=== PATIENT | male | born 1940 | race Caucasian/White ===

== ENCOUNTER 2017-02-11 11:23 | Inpatient (IN) | payer MEDICARE ==
[~2017-02-11] VITALS: Ht 327.7 cm; Wt 52.4 kg
[2017-02-11 00:30] VITALS: BP 131/79
[~2017-02-11 11:23] MED LIST: ASA81 MG PO; FAMOTIDINE20 MG PO; HYDROCODONE; LASIX40 MG PO; LEVOTHYROXINE75 MCG PO; LEXAPRO10 MG PO; LISINOPRIL10 MG PO; TRIAMTERENE-HCTZ1 EA PO; TYLENOL WITH C1 EACH PO; ULTRAM 50MG50 MG PO; VERAPAMIL ER120 MG PO; Z TEKTURNA HCT; Z.0.CLONIDINE HCL0.2; Z.0.DIAZEPAM10 MG PO; Z.0.GLIPIZIDE5 MG PO; Z.0.METOPROLOL SUCC5; Z.1.VERAPAMIL ER240; [UNRECOGNIZED DRUG - OTHER]
[2017-02-11] MEDS ORDERED: SODIUM CHLORIDE FLUSH 10 ML SYR INJ PRN ×2 (13:00→19:30)
--- NOTE | 2017-02-11 13:48 | Diagnostic Imaging Report ---
PROCEDURE: CT ABDOMEN AND PELVIS WITHOUT CONTRAST TECHNIQUE: The abdomen and pelvis were scanned utilizing a multidetector helical scanner from the diaphragm to the lesser trochanter without contrast per stone protocol. Coronal and sagittal multiplanar reformations were obtained. COMPARISON: CT abdomen and pelvis 06/05/2014. INDICATIONS: hematuria FINDINGS: ABSENCE OF INTRAVENOUS CONTRAST DECREASES SENSITIVITY FOR DETECTION OF FOCAL LESIONS AND VASCULAR PATHOLOGY. LOWER THORAX: Peribronchial cuffing. Mild dependent atelectasis. Calcified granuloma in the right lower lobe. Subtle tree in bud nodular opacities in the left lower lobe. Questionable tree in bud nodules in the right lower lo lobe. Coronary artery calcifications. HEPATOBILIARY: No focal hepatic lesions. No biliary ductal dilatation. SPLEEN: No splenomegaly. PANCREAS: No focal masses or ductal dilatation. ADRENALS: No adrenal nodules. KIDNEYS/URETERS: No hydronephrosis, or solid mass lesions. 3.5 cm simple cyst in the superior pole left kidney (series 2 image 13). Previously 3.1 cm. Right double-J ureteral stent in place. Possible 0.5 cm stone in the right renal pelvis (series 301 image 57). PELVIC ORGANS/BLADDER: Unremarkable. PERITONEUM / RETROPERITONEUM: No free air or fluid. LYMPH NODES: No lymphadenopathy. VESSELS: Severe atherosclerotic calcifications in the aorta and major arterial branches. This extends into both renal arteries. GI TRACT: No distention or wall thickening. BONES AND SOFT TISSUES: Moderate degenerative changes in the lumbar spine with moderate multilevel disc space narrowing. Large posterior disc osteophytes at L2-L3, L3-4, and L4-L5.. IMPRESSION: 1. Right double-J ureteral stent in place. No hydronephrosis. 2. 0.5 cm calcification in the right renal pelvis/sinus. This may represent a stone. However, this was present on 06/05/2014 and may also represent a vascular calcification. Patient has significant atherosclerotic calcifications in the aorta and extending into the renal arteries. 3. Bilateral lobe pneumonia. Dictated by: Eric Parra M.D. on 02/11/2017 at 13:56 Electronically approved by: Eric Parra M.D. on 02/11/2017 at 13:56
[2017-02-11 14:47] LABS: KETONES,URINE TRACE (NEGATIVE); LEUKOCYTE ESTERASE ,URINE 2+ (NEGATIVE); PROTEIN,URINE DIPSTICK 3+ (NEGATIVE); URINE UROBILINOGEN 1 mg/dL (0.2 - 1)
[2017-02-11 14:50] LABS: BASOPHILS # (AUTO) 0.1 (0.0-0.1); BASOPHILS % 0.7 % (0.0-1.0); EOSINOPHILS # (AUTO) 0.1 (0.0-0.4); EOSINOPHILS % 0.8 % (0.0-6.0); HEMATOCRIT 41.6 % (38.2-49.6); HEMOGLOBIN 12.9 g/dL (14.0-18.0); LYMPHOCYTES # (AUTO) 1.4 (1.0-3.2); LYMPHOCYTES % 19.2 % (18.0-39.1); MEAN CORPUSCULAR HEMOGLOBIN 26.7 pg (28-32); MEAN CORPUSCULAR VOLUME 86.1 fL (81-99); MONOCYTES # (AUTO) 0.6 (0.2-0.8); MONOCYTES % 8.1 % (4.4-11.3); NEUTROPHILS # (AUTO) 5.3 (2.1-6.9); NEUTROPHILS % 71.1 % (38.7-80.0); PLATELET COUNT 336 x10e3/uL (140-360); RED BLOOD COUNT 4.83 x10e6/uL (4.3-5.7); RED CELL DISTRIBUTION WIDTH 13.7 % (11.7-14.4)
[2017-02-11 15:10] LABS: BILIRUBIN,URINE 1+ (NEGATIVE); CLARITY,URINE CLOUDY (CLEAR); COLOR,URINE AMBER (YELLOW); NITRITE,URINE POSITIVE (NEGATIVE)
[2017-02-11 15:15] LABS: RBC,URINE >50 /HPF (0-5); WBC,URINE (MAN) >50 /HPF (0-5)
[2017-02-11 15:20] LABS: ALBUMIN 3.8 g/dL (3.5-5.0); ALKALINE PHOSPHATASE 83 IU/L (40-150); BLOOD UREA NITROGEN 24 mg/dL (7-26); BUN/CREATININE RATIO 11 (6-25); CALCIUM 9.9 mg/dL (8.4-10.2); CARBON DIOXIDE 26 mmol/L (22-29); CHLORIDE 106 mmol/L (98-107); CREATININE, SERUM 2.14 mg/dL (0.72-1.25); EST GLOMERULAR FILTRATION RATE 30 ML/MIN (60-); GLUCOSE 102 mg/dL (74-118); SODIUM 143 mmol/L (136-145)
[2017-02-11 15:23] LABS: ALANINE AMINOTRANSFERASE < 6 IU/L (0-55)
[2017-02-11] MEDS ORDERED: SODIUM CHLORIDE 0.9% 1000ML 1,000 ML IV SCH (17:45)
[2017-02-11] MEDS ORDERED: LEVOFLOXACIN 750MG/D5W 150ML 150 ML IV STA (17:45)
[2017-02-11 18:55] LABS: CREATINE KINASE MB 0.7 ng/mL (0.00-5.00); TROPONIN I 0.019 ng/mL (0-0.300)
[2017-02-11] MEDS ORDERED: OXYBUTYNIN CHLOR5 MG PO (19:06)
[2017-02-11] MEDS ORDERED: LEVOFLOXACIN 750MG/DEXTROSE PREMIX BAG 150ML IV SCH (19:30)
[2017-02-11] MEDS: ALBUTEROL SULF 0.083% NEB SOLN 3 ML NEB NEB SCH ×2 (19:30→23:00)
[2017-02-11] MEDS: SODIUM CHLORIDE 0.9% 1000ML 1,000 ML IV SCH (21:41)
[2017-02-11 23:00] LABS: CREATINE KINASE MB 0.8 ng/mL (0.00-5.00); TROPONIN I 0.017 ng/mL (0-0.300)
[2017-02-12] VITALS (7 sets, daily range): BP systolic 109–173; BP diastolic 55–79
[2017-02-12] MEDS: ALBUTEROL SULF 0.083% NEB SOLN 3 ML NEB NEB SCH ×5 (03:00→20:30)
[2017-02-12] MEDS: SODIUM CHLORIDE 0.9% 1000ML 1,000 ML IV SCH ×4 (03:23→23:49)
[2017-02-12 06:22] LABS: BASOPHILS # (AUTO) 0.1 (0.0-0.1); BASOPHILS % 1.3 % (0.0-1.0); EOSINOPHILS # (AUTO) 0.2 (0.0-0.4); EOSINOPHILS % 3.3 % (0.0-6.0); HEMATOCRIT 33.8 % (38.2-49.6); HEMOGLOBIN 10.6 g/dL (14.0-18.0); LYMPHOCYTES # (AUTO) 1.3 (1.0-3.2); LYMPHOCYTES % 22.7 % (18.0-39.1); MEAN CORPUSCULAR HEMOGLOBIN 26.7 pg (28-32); MEAN CORPUSCULAR HGB CONC 31.4 g/dL (31-35); MEAN CORPUSCULAR VOLUME 85.1 fL (81-99); MONOCYTES # (AUTO) 0.5 (0.2-0.8); MONOCYTES % 9.8 % (4.4-11.3); NEUTROPHILS # (AUTO) 3.5 (2.1-6.9); NEUTROPHILS % 62.7 % (38.7-80.0); PLATELET COUNT 238 x10e3/uL (140-360); RED BLOOD COUNT 3.97 x10e6/uL (4.3-5.7); RED CELL DISTRIBUTION WIDTH 13.5 % (11.7-14.4)
[2017-02-12 06:50] LABS: CREATINE KINASE MB 0.8 ng/mL (0.00-5.00); TROPONIN I 0.015 ng/mL (0-0.300)
--- NOTE | 2017-02-12 08:09 | History and Physical ---
PRIMARY CARE PHYSICIAN: Dr. Ramirez CHIEF COMPLAINT: Bloody urine. HISTORY OF PRESENT ILLNESS: This is a 76-year-old man with a history of bladder polyps removed about [address] Torres, now developing hematuria for the past 3 weeks prompting his visit to the hospital. Here, he was found to have bloody urine. He was admitted for further evaluation and management. Denies any use of aspirin, Plavix or blood thinners. PAST MEDICAL HISTORY: Bladder polyps, status post removal [address] Torres, cigarette abuse and continued use of 1 pack a day, laryngeal cancer diagnosed in 2002, status post radiation therapy, status post tracheostomy placement, diabetes mellitus, anxiety/depression, hypothyroidism, hypertension, failure to thrive, severe dehydration, severe malnutrition, chronic kidney disease, stage 3/diabetic nephropathy, urethral disease, status post right double J-ureteral stent placement. PAST SURGICAL HISTORY: Tracheostomy placement, right double J-urethral stent placement. ALLERGIES: PER ELECTRONIC MEDICAL RECORD. FAMILY HISTORY/SOCIAL HISTORY: Patient is single. He has 2 children. Denies any alcohol or illicits. Continues to smoke 1 pack of cigarettes per day. MEDICATIONS: Per electronic medical record. REVIEW OF SYSTEMS: Denies any dizziness or chest pain. PHYSICAL EXAMINATION VITAL SIGNS: Reviewed. Heart rate as low as 41. GENERAL: A tired-appearing man resting in bed. HEENT: Anicteric. Pupils respond to light. No oral lesions. He has a tracheostomy in place and on room air. CARDIOVASCULAR: Normal S1 and S2. LUNGS: Moderate breath sounds. No wheezing. ABDOMEN: Soft, nontender and nondistended. : No Spence is in place. EXTREMITIES: No edema or calf tenderness. NEUROLOGICAL: Alert and oriented times 3. Moving all extremities. SKIN: Dry. PSYCHIATRIC: Normal affect. LABS: Reviewed. MEDICATIONS: Reviewed. ASSESSMENT AND PLAN: This is a 76-year-old man with: 1. Hematuria: Spence placement and irrigation. Urology consultation. Hold aspirin. 2. Bradyarrhythmia: There is no AV blocking agents. Will monitor. Utilizing hydralazine for reflex tachycardia. 3. Diabetes mellitus: Will obtain hemoglobin A1c and lipid panel. 4. Chronic kidney disease, stage 3/diabetic nephropathy: Will monitor renal function. Appears to be at baseline. 5. Normocytic anemia, mild: Will monitor. 6. Urinary tract infection: Will treat with antibiotics in the form of Levaquin and follow up cultures. 7. Double J-urethral stent in place: No hydronephrosis noted. Will defer to urology. 8. Lung infiltrates bilaterally: He is on Levaquin now. If this is pneumonia, he is receiving appropriate treatment. 9. Use sequential compression devices for deep venous thrombosis prophylaxis and will use Pepcid. 10. Disposition: Bladder irrigation, antibiotics, and urology consultation. Job#: [id number] THOMAS
[2017-02-12] MEDS: FAMOTIDINE 20 MG TAB PO SCH ×2 (08:21→16:48)
[2017-02-12] MEDS: LISINOPRIL 10 MG TAB PO SCH ×2 (08:21→16:48)
[2017-02-12] MEDS: ESCITALOPRAM OXALATE 10 MG TAB PO SCH (08:21)
[2017-02-12] MEDS: OXYBUTYNIN CHLORIDE 5 MG TAB PO SCH ×2 (08:21→16:48)
[2017-02-12 08:31] LABS: CHOL/HDL RATIO 4.6 (3.9-4.7)
[2017-02-12] MEDS ORDERED: LEVOTHYROXINE SODIUM 75 MCG TAB PO SCH (09:00)
[2017-02-12] MEDS: DIAZEPAM 5 MG TAB PO PRN ×2 (09:16→19:54)
[2017-02-12] MEDS: TRAMADOL HCL 50 MG TAB PO SCH ×4 (09:17→21:00)
[2017-02-12] MEDS: HYDRALAZINE HCL 10 MG TAB PO SCH ×2 (14:00→21:00)
--- NOTE | 2017-02-12 15:27 | Consultation ---
DATE OF CONSULTATION: February 12, 2017 UROLOGIC CONSULTATION REQUESTING PHYSICIAN: Dr. Torres. CHIEF UROLOGICAL COMPLAINT/REASON FOR CONSULTATION: Bladder cancer, hematuria. HISTORY OF PRESENT ILLNESS: Mr. Randle is a 76-year-old noncompliant male who had bladder cancer, ureteral cancer, and had a stent placed by Dr. Torres in November. He did not follow up subsequent to this. He has had gross hematuria and is admitted to the hospital with bilateral pneumonia. PAST MEDICAL HISTORY: As above. Pathology from December 03: High-grade positive lamina propria invasion, negative muscular invasion bladder cancer, ureteral cancer. MEDICATIONS: Please see MAR. ALLERGIES: NKDA. SOCIAL HISTORY: No smoking nor drinking. FAMILY HISTORY: Denied urologic stones or malignancies. REVIEW OF SYSTEMS: Noncontributory other than problems mentioned above for 12 organ systems. PHYSICAL EXAMINATION IN GENERAL: An elderly male in no acute distress. VITAL SIGNS: Temperature 97.8. Stable vital signs. HEENT: His sclerae are anicteric. NECK: Supple. There is a trach tube. BACK: Without costovertebral angle tenderness bilaterally. CHEST: Symmetric. ABDOMEN: Soft, nontender, nondistended. : Normal male external genitalia. EXTREMITIES: No edema. NEUROLOGIC: Moves extremities. PSYCHIATRIC: Alert. Mood appropriate. SKIN: Intact. Normal color. PERTINENT LABORATORY DATA: CT scan revealing a left 3.5 cm renal cyst, a right-sided stent, a 5 mm right middle pole stone, bilateral pneumonia. Hemoglobin 12, hematocrit 41, platelet count 336,000, white cell count 7500. Sodium 143, potassium 4.0, chloride 106, bicarb 20, BUN 24, creatinine 2.14, glucose 102. Urinalysis: Greater than 50 reds, greater than 50 whites. IMPRESSION 1. Gross hematuria. 2. Indwelling ureteral stent. 3. Kidney stone. 4. Bladder cancer. 5. Question urinary tract infection. 6. Noncompliance. PLAN: The patient needs to be placed on culture-specific antibiotics, will need his stent changed via cystoscopy. Thank you for allowing me to participate in the care of your patient. We will be happy to follow along with you. Job#: [id number] EV cc:MD DOLORES THORNTON MD
[2017-02-12] MEDS ORDERED: FAMOTIDINE 20 MG TAB PO SCH (16:30)
[2017-02-12] MEDS: LEVOFLOXACIN 750MG/D5W 150ML 150 ML IV SCH (16:48)
[2017-02-12] MEDS ORDERED: DIAZEPAM 5 MG TAB PO SCH (21:00)
[2017-02-12] MEDS ORDERED: NON-FORMULARY MEDICATION (Diazepam 10 MG) PO SCH (21:00)
[2017-02-13 00:31] VITALS: BP 154/70
[2017-02-13] MEDS: TRAMADOL HCL 50 MG TAB PO SCH ×6 (01:46→21:34)
[2017-02-13] MEDS: ALBUTEROL SULF 0.083% NEB SOLN 3 ML NEB NEB SCH ×6 (02:50→23:00)
[2017-02-13 04:00] VITALS: BP 135/59
[2017-02-13] MEDS: HYDRALAZINE HCL 10 MG TAB PO SCH ×3 (05:42→21:34)
[2017-02-13] MEDS: LEVOTHYROXINE SODIUM 75 MCG TAB PO SCH (05:43)
--- NOTE | 2017-02-13 07:26 | Progress Note ---
DATE: February 13, 2017 TIME: 6:15 a.m. OVERNIGHT: No events. REVIEW OF SYSTEMS: Denies any dizziness or chest pain. PHYSICAL EXAMINATION VITAL SIGNS: Reviewed. GENERAL: A tired-appearing man resting in bed. HEENT: Anicteric. Tracheostomy in place to room air. CARDIOVASCULAR: Normal S1 and S2. LUNGS: Moderate breath sounds. ABDOMEN: Soft, nontender and nondistended. : No Spence. EXTREMITIES: No edema or calf tenderness. NEUROLOGICAL: Alert and oriented times 3. Moving all extremities. SKIN: Dry. PSYCHIATRIC: Flat affect. LABS: Reviewed. MEDICATIONS: Reviewed. ASSESSMENT: A 76-year-old man with: 1. Hematuria: Urology on board. Aspirin on hold. Follow up H and H. 2. Bradyarrhythmia. 3. Diabetes mellitus. 4. Chronic kidney disease, stage 3/diabetic nephropathy. 5. Normocytic anemia. 6. Urinary tract infection. 7. Double J-ureteral stent, history. 8. Lung infiltrates/pneumonia. PLAN 1. Continue IV Levaquin. Follow up cultures. There is growth detected in the blood. Will await identification. 2. Continue Synthroid. 3. His hemoglobin A1c was 5.6. Unclear as to whether the patient in fact has diabetes. His LDL was 99 and triglycerides 94. 4. Urology had planned for stent change by cystoscopy. 5. Continue treatment for pneumonia. 6. Continue Pepcid and SCD for DVT prophylaxis. Job#: [id number] [place]
[2017-02-13 08:00] VITALS: BP 140/63
[2017-02-13] MEDS: ESCITALOPRAM OXALATE 10 MG TAB PO SCH (09:01)
[2017-02-13] MEDS: FAMOTIDINE 20 MG TAB PO SCH ×2 (09:01→17:56)
[2017-02-13] MEDS: OXYBUTYNIN CHLORIDE 5 MG TAB PO SCH ×2 (09:01→17:56)
[2017-02-13] MEDS: LISINOPRIL 10 MG TAB PO SCH ×2 (09:01→17:57)
[2017-02-13] MEDS: SODIUM CHLORIDE 0.9% 1000ML 1,000 ML IV SCH (11:23)
[2017-02-13 12:00] VITALS: BP 149/64
[2017-02-13 16:00] VITALS: BP 139/61
[2017-02-13] MEDS: LEVOFLOXACIN 750MG/D5W 150ML 150 ML IV SCH (17:57)
[2017-02-13 20:00] VITALS: BP 128/64
[2017-02-14] VITALS: BP 165/72
[2017-02-14] MEDS: SODIUM CHLORIDE 0.9% 1000ML 1,000 ML IV SCH ×3 (00:45→19:23)
[2017-02-14] MEDS: ALBUTEROL SULF 0.083% NEB SOLN 3 ML NEB NEB SCH ×5 (01:55→21:50)
[2017-02-14] MEDS: TRAMADOL HCL 50 MG TAB PO SCH ×6 (02:00→21:23)
[2017-02-14 04:00] VITALS: BP 166/74
[2017-02-14] MEDS: HYDRALAZINE HCL 10 MG TAB PO SCH ×3 (06:00→21:23)
[2017-02-14] MEDS: LEVOTHYROXINE SODIUM 75 MCG TAB PO SCH (06:00)
[2017-02-14 08:00] VITALS: BP 129/62
[2017-02-14] MEDS: ESCITALOPRAM OXALATE 10 MG TAB PO SCH (09:28)
[2017-02-14] MEDS: OXYBUTYNIN CHLORIDE 5 MG TAB PO SCH ×2 (09:28→18:09)
[2017-02-14] MEDS: FAMOTIDINE 20 MG TAB PO SCH ×2 (09:28→18:09)
[2017-02-14] MEDS: LISINOPRIL 10 MG TAB PO SCH ×2 (09:29→18:09)
[2017-02-14 12:00] VITALS: BP 140/65
[2017-02-14 16:00] VITALS: BP 137/80
[2017-02-14 20:00] VITALS: BP 161/69
[2017-02-15] VITALS: BP 150/70
[2017-02-15] MEDS: TRAMADOL HCL 50 MG TAB PO SCH ×6 (02:00→22:14)
[2017-02-15] MEDS: ALBUTEROL SULF 0.083% NEB SOLN 3 ML NEB NEB SCH ×6 (02:55→23:12)
[2017-02-15 04:00] VITALS: BP 121/77
[2017-02-15] MEDS: HYDRALAZINE HCL 10 MG TAB PO SCH ×3 (05:29→22:13)
[2017-02-15] MEDS: LEVOTHYROXINE SODIUM 75 MCG TAB PO SCH (05:29)
[2017-02-15 08:00] VITALS: BP 142/59
[2017-02-15] MEDS: LISINOPRIL 10 MG TAB PO SCH ×2 (09:00→16:01)
[2017-02-15] MEDS: ESCITALOPRAM OXALATE 10 MG TAB PO SCH (09:54)
[2017-02-15] MEDS: FAMOTIDINE 20 MG TAB PO SCH ×2 (09:54→15:59)
[2017-02-15] MEDS: OXYBUTYNIN CHLORIDE 5 MG TAB PO SCH ×2 (09:54→16:00)
--- NOTE | 2017-02-15 10:29 | Progress Note ---
DATE: February 14, 2017 at 1 p.m. SUBJECTIVE: Overnight no events. REVIEW OF SYSTEMS: Denies any dizziness or chest pain. OBJECTIVE VITAL SIGNS: Reviewed. GENERAL APPEARANCE: A tired-appearing man resting in the bed. HEENT: Anicteric. Tracheotomy in place on room air. CARDIOVASCULAR: Normal S1 and S2. No murmurs. ABDOMEN: Soft and nontender. Nondistended. EXTREMITIES: There is no edema or calf tenderness. NEUROLOGIC: Alert and oriented x3. Moving all extremities. SKIN: Dry. PSYCHIATRIC: Flat affect. LABS: Reviewed. MEDICATIONS: Reviewed. ASSESSMENT : A 76-year-old man. 1. Hematuria. 2. Bradyarrhythmia. 3. Diabetes mellitus. 4. Chronic kidney disease stage 3/diabetic nephropathy. 5. Normocytic anemia. 6. Urinary tract infection. 7. Double J ureteral stent, history. 8. Lung infiltrate/pneumonia. 9. Staphylococcus bacteremia, currently on Levaquin. PLAN: 1. Continue IV Levaquin. 2. Continue Synthroid. 3. Hemoglobin A1c 5.6. LDL 99. 4. Urology plans to change stent by cystoscopy. 5. Continue treatment for pneumonia. 6. Continue Pepcid and SCDs. 7. Follow up cultures. 8. Will continue antibiotics and obtain repeat blood cultures. 9. Will consult infectious disease. Job#: [id number]
[2017-02-15] MEDS: SODIUM CHLORIDE 0.9% 1000ML 1,000 ML IV SCH ×2 (11:23→22:15)
[2017-02-15 12:00] VITALS: BP 143/82
--- NOTE | 2017-02-15 13:44 | Consultation ---
DATE OF CONSULTATION: REASON FOR CONSULTATION: UTI. HISTORY OF PRESENT ILLNESS: This patient is a 76-year-old. white male who has history of bladder polyps removed about [address] Torres. Comes into the hospital with hematuria, not feeling well, fever, chills. Patient was admitted. This patient who has history of bladder polyps resected 3 months ago. Heavy smoking, 1 pack a day, laryngeal cancer diagnosed 2002, status post radiation, status post tracheostomy, diabetes mellitus, anxiety, depression, hypothyroidism, hypertension, failure to thrive, severe dehydration, chronic kidney disease, malnutrition, diabetic nephropathy, status post right double J ureteral stent placement comes in with the above complaint. Patient was admitted. He was seen by urology, Dr. Davalos. Infectious disease was consulted. The patient was currently lying in bed comfortably. Has no complaints. Laboratory data reviewed. Blood cultures are showing gram-positive cocci 2 sets. Urine cultures have been negative so far. White count on admission 7.5 and today 5.5, hemoglobin 10.6. His platelets of 238. Sodium of 143. Potassium 4.0. Creatinine 2.14. Liver enzymes within normal limits. REVIEW OF SYSTEMS: HEENT: Negative. PULMONARY: Negative. CARDIAC: Negative. GI: Negative. : Negative. SKIN: No rash. All other systems within normal limits. He says he is feeling well. PHYSICAL EXAMINATION: GENERAL: He is alert, oriented and does not seem to be acute distress. VITALS: Stable, afebrile. I reviewed all his vitals since admission. HEENT: Not icteric. Normocephalic. NECK: Supple. CHEST: A few crackles at the base. COR: S1 and S2, no murmur. ABDOMEN: Soft. Bowel sounds are present. EXTREMITIES: No edema. SKIN: No rash. CT showed bilateral lobe pneumonia. He had a right double J stent. IMPRESSION: 1. Community-acquired pneumonia. 2. Bacteremia; coagulase-negative Staphylococcus probably contamination. 3. Hematuria, resolved, probably from stone. 4. History of laryngeal cancer, status post radiation, status post tracheostomy. 5. History of diabetes mellitus. 6. History of osteoarthritis. 7. History of hypertension. 8. Bacteremia contamination. 9. Chronic kidney disease. 10. Renal stones. PLAN: At the present time, I agree with the choice of Levaquin. He also seems to be feeling better. Plan over 5 days. Will adjust his Levaquin dose according to his kidney function. Will follow. Job#: [id number] EMMIE
[2017-02-15 16:00] VITALS: BP 154/63
[2017-02-15] MEDS ORDERED: LEVOFLOXACIN 750MG/D5W 150ML 150 ML IV SCH (18:00)
[2017-02-15 20:00] VITALS: BP 142/69
[2017-02-16] VITALS (7 sets, daily range): BP systolic 150–198; BP diastolic 70–85
[2017-02-16] MEDS: TRAMADOL HCL 50 MG TAB PO SCH ×6 (02:00→22:00)
[2017-02-16] MEDS: ALBUTEROL SULF 0.083% NEB SOLN 3 ML NEB NEB SCH ×6 (03:35→23:30)
--- NOTE | 2017-02-16 04:20 | Progress Note ---
DATE: February 15, 2017 TIME: 11 a.m. OVERNIGHT: No events. REVIEW OF SYSTEMS: Denies any dizziness or chest pain. PHYSICAL EXAMINATION VITAL SIGNS: Reviewed. GENERAL: A tired-appearing man resting in bed. HEENT: Anicteric. He has a T-collar in place and on room air. CARDIOVASCULAR: Normal S1 and S2. LUNGS: Moderate breath sounds. ABDOMEN: Soft and nontender. EXTREMITIES: No edema. SKIN: Dry. PSYCHIATRIC: Normal affect. LABS: Reviewed. MEDICATIONS: Reviewed. ASSESSMENT: A 76-year-old man with: 1. Hematuria. 2. Staphylococcus bacteremia. 3. Bradyarrhythmia. 4. Diabetes mellitus. 5. Chronic kidney disease, stage 3/diabetic nephropathy. 6. Normocytic anemia. 7. Urinary tract infection. 8. Double J-stent, history. 9. Lung infiltrate/pneumonia. PLAN 1. Continue IV antibiotics per infectious disease. 2. Hemoglobin A1c was 5.6, LDL 99. 3. Urology management of the stent, possibly outpatient. 4. Continue treatment of pneumonia. 5. Patient remains on IV Levaquin. 6. Discharge planning. Will discuss with infectious disease regarding care. Job#: [id number] THOMAS
[2017-02-16] MEDS: LEVOTHYROXINE SODIUM 75 MCG TAB PO SCH (05:17)
[2017-02-16] MEDS: HYDRALAZINE HCL 10 MG TAB PO SCH ×3 (05:17→22:34)
[2017-02-16] MEDS: SODIUM CHLORIDE 0.9% 1000ML 1,000 ML IV SCH ×3 (05:33→19:23)
[2017-02-16 06:44] LABS: BASOPHILS # (AUTO) 0.1 (0.0-0.1); BASOPHILS % 0.8 % (0.0-1.0); EOSINOPHILS # (AUTO) 0.4 (0.0-0.4); EOSINOPHILS % 6.3 % (0.0-6.0); HEMATOCRIT 33.7 % (38.2-49.6); HEMOGLOBIN 10.6 g/dL (14.0-18.0); LYMPHOCYTES # (AUTO) 1.3 (1.0-3.2); LYMPHOCYTES % 20.6 % (18.0-39.1); MEAN CORPUSCULAR HEMOGLOBIN 26.7 pg (28-32); MEAN CORPUSCULAR HGB CONC 31.5 g/dL (31-35); MEAN CORPUSCULAR VOLUME 84.9 fL (81-99); MONOCYTES # (AUTO) 0.6 (0.2-0.8); MONOCYTES % 10.2 % (4.4-11.3); NEUTROPHILS # (AUTO) 3.9 (2.1-6.9); NEUTROPHILS % 61.8 % (38.7-80.0); PLATELET COUNT 219 x10e3/uL (140-360); RED BLOOD COUNT 3.97 x10e6/uL (4.3-5.7); RED CELL DISTRIBUTION WIDTH 13.6 % (11.7-14.4)
[2017-02-16 06:59] LABS: ANION GAP 9.9 mmol/L (8-16); CALCIUM 8.2 mg/dL (8.4-10.2); CREATININE, SERUM 1.73 mg/dL (0.72-1.25); POTASSIUM 3.9 mmol/L (3.5-5.1)
[2017-02-16] MEDS ORDERED: ACETAMINOPHEN 325 MG TAB PO PRN (08:30)
[2017-02-16] MEDS: ESCITALOPRAM OXALATE 10 MG TAB PO SCH (09:50)
[2017-02-16] MEDS: LISINOPRIL 10 MG TAB PO SCH ×2 (09:50→17:31)
[2017-02-16] MEDS: FAMOTIDINE 20 MG TAB PO SCH ×2 (09:50→17:31)
[2017-02-16] MEDS: OXYBUTYNIN CHLORIDE 5 MG TAB PO SCH ×2 (09:50→17:31)
--- NOTE | 2017-02-16 11:38 | Progress Note ---
DATE: February 16, 2017 TIME: 8:28 a.m. OVERNIGHT: No events. REVIEW OF SYSTEMS: Denies any dizziness or chest pain. PHYSICAL EXAMINATION VITAL SIGNS: Reviewed. GENERAL: A tired-appearing man resting in bed. HEENT: Anicteric. He has a tracheostomy with T-collar in place on room air. CARDIOVASCULAR: Normal S1 and S2. LUNGS: Moderate breath sounds. ABDOMEN: Soft and nontender. EXTREMITIES: No edema. SKIN: Dry. PSYCHIATRIC: Normal affect. LABS: Reviewed. MEDICATIONS: Reviewed. ASSESSMENT: A 76-year-old man with: 1. Hematuria/Staphylococcus bacteremia/bradyarrhythmia/diabetes mellitus/chronic kidney disease, stage 3/diabetic nephropathy. 2. Normocytic anemia. 3. Urinary tract infection. 4. Double J-stent history. 5. Lung infiltrate/pneumonia. PLAN 1. Continue IV antibiotics per infectious disease. 2. Hemoglobin A1c 5.6, LDL 99. 3. Further management outpatient for stent management. 4. Continue treatment for pneumonia with Levaquin. Job#: [id number] [place]
[2017-02-17 00:15] VITALS: BP 183/77
[2017-02-17 01:08] VITALS: BP 183/77
[2017-02-17] MEDS: TRAMADOL HCL 50 MG TAB PO SCH ×3 (02:00→08:33)
[2017-02-17] MEDS: ALBUTEROL SULF 0.083% NEB SOLN 3 ML NEB NEB SCH ×2 (03:12→07:10)
[2017-02-17] MEDS: SODIUM CHLORIDE 0.9% 1000ML 1,000 ML IV SCH (03:23)
[2017-02-17 05:42] VITALS: BP 155/70
[2017-02-17] MEDS: LEVOTHYROXINE SODIUM 75 MCG TAB PO SCH (05:43)
[2017-02-17] MEDS: HYDRALAZINE HCL 10 MG TAB PO SCH (05:43)
[2017-02-17] MEDS ORDERED: HYDRALAZINE HCL10 MG PO (06:31)
[2017-02-17] MEDS ORDERED: FAMOTIDINE20 MG PO (06:31)
[2017-02-17] MEDS ORDERED: LEVAQUIN500 MG PO (06:33)
[2017-02-17 08:01] VITALS: BP 181/91
--- NOTE | 2017-02-17 08:03 | Discharge Summary ---
PRINCIPAL DIAGNOSES: 1. Hematuria. 2. Coagulase-negative Staphylococcus bacteremia with repeat cultures negative times 48 hours. 3. Bradyarrhythmia. 4. Diabetes mellitus. 5. Chronic kidney disease, stage 3. 6. Diabetic nephropathy. 7. Urinary tract infection. 8. Pneumonia. SECONDARY DIAGNOSIS: Diabetes mellitus. CHIEF COMPLAINT: Bloody urine. HISTORY OF PRESENT ILLNESS: A 76-year-old man with bloody urine. Please refer to the H and P for further details. HOSPITAL COURSE: Patient found to have bloody urine, positive coagulase-negative Staph bacteremia and pneumonia, treated with Levaquin. Infectious disease assisted in management. He has double-J stent. He needs to follow up with urology outpatient. He has hemoglobin A1c 5.6, LDL 99. Patient is doing better. Will receive a total of 14 days of Levaquin. FOLLOWUP: 1. Follow up with primary care doctor in 1 week. 2. Follow up with urology in 2 weeks. DISCHARGE MEDICATIONS: Per electronic medical record. CONDITION ON DISCHARGE: Stable and improving. DOLORES DUGGAN MD Job#: [id number]
[2017-02-17] MEDS: LISINOPRIL 10 MG TAB PO SCH (08:33)
[2017-02-17] MEDS: ESCITALOPRAM OXALATE 10 MG TAB PO SCH (08:33)
[2017-02-17] MEDS: OXYBUTYNIN CHLORIDE 5 MG TAB PO SCH (08:33)
[2017-02-17] MEDS: FAMOTIDINE 20 MG TAB PO SCH (08:33)
== END 2017-02-17 10:29 | disposition home or self-care (01) | DRG 693 ==
LOC: ER 11:23 → ERHOLD 19:46 → MED/SURG2 23:12
PROVIDERS: ADMIT Internal Medicine; ATTEND Internal Medicine
DX: N20.0 Calculus of kidney (principal); J15.9 Unspecified bacterial pneumonia; E43 Unspecified severe protein-calorie malnutrition; R78.81 Bacteremia; Z93.0 Tracheostomy status; N39.0 Urinary tract infection, site not specified; N18.3 Chronic kidney disease, stage 3 (moderate); E11.21 Type 2 diabetes mellitus with diabetic nephropathy; D64.9 Anemia, unspecified; R31.0 Gross hematuria; F17.210 Nicotine dependence, cigarettes, uncomplicated; Z85.01 Personal history of malignant neoplasm of esophagus; I49.8 Other specified cardiac arrhythmias; E11.22 Type 2 diabetes mellitus with diabetic chronic kidney disease; Z96.0 Presence of urogenital implants; Z85.51 Personal history of malignant neoplasm of bladder; Z91.19 Patient's noncompliance with other medical treatment and regimen; G47.33 Obstructive sleep apnea (adult) (pediatric)
CPT/HCPCS: 36415; 74176; 80048; 80053; 80061; 81001; 82550; 82553; 82948; 83036; 84484; 85025; 87040; 87071; 87086; 87205; 93005; 94640; 99284; J7030

== ENCOUNTER → 2017-03-25 | Day surgery (SDC) | payer MEDICARE ==
[2017-03-23 13:27] LABS: BASOPHILS % 0.2 % (0.0-1.0); EOSINOPHILS % 0.4 % (0.0-6.0); HEMOGLOBIN 11.8 g/dL (14.0-18.0); LYMPHOCYTES # (AUTO) 1.1 (1.0-3.2); MEAN CORPUSCULAR HEMOGLOBIN 26.6 pg (28-32); MEAN CORPUSCULAR HGB CONC 30.3 g/dL (31-35); MONOCYTES # (AUTO) 0.7 (0.2-0.8); MONOCYTES % 6.6 % (4.4-11.3); NEUTROPHILS # (AUTO) 8.8 (2.1-6.9); NEUTROPHILS % 82.7 % (38.7-80.0); PLATELET COUNT 229 x10e3/uL (140-360); RED BLOOD COUNT 4.43 x10e6/uL (4.3-5.7); RED CELL DISTRIBUTION WIDTH 13.9 % (11.7-14.4)
[2017-03-23 13:43] LABS: ANION GAP 14.6 mmol/L (8-16); CALCIUM 8.4 mg/dL (8.4-10.2); CREATININE, SERUM 1.57 mg/dL (0.72-1.25); POTASSIUM 4.6 mmol/L (3.5-5.1)
--- NOTE | 2017-03-23 14:06 | Diagnostic Imaging Report ---
PROCEDURE: X-RAY CHEST, TWO VIEWS COMPARISON: Chest x-ray 11/28/16. INDICATIONS: PRE-OP ON BLADDER FINDINGS: LUNGS: Several calcified granulomata in the lateral and inferior left lung field are stable. No soft tissue mass. Lungs are diffusely hyperinflated consistent with COPD. Tracheotomy is in appropriate position and is stable. PLEURA: No effusions or pneumothorax. HEART \T\ MEDIASTINUM: The heart is within normal size-limits. The aorta is ectatic and stable morphology. No hilar lymphadenopathy. BONES \T\ SOFT TISSUES: No focal osseous. Soft tissues are unremarkable.. CONCLUSION: Stable chest. No active disease. Dictated by: Saul Sandhu M.D. on 03/23/2017 at 14:16 Electronically approved by: Saul Sandhu M.D. on 03/23/2017 at 14:16
[~2017-03-25] MED LIST changes: +AMIODARONE HCL200 MG PO; +BELLADONNA/OPIUM 60 MG SUPP PR ONE; +DEXAMETHASONE SOD PHOS INJ 4 MG/ML VIAL ONE; +FENTANYL CITRATE/PF 100MCG/2 ML INJ ONE; +GENTAMICIN 80MG/NS 100 ML 200 ML IV ONE; +HYDRALAZINE HCL10 MG PO; +IOPAMIDOL 610MG/1ML 300 MG/ML VIAL IV ONE; +LEVAQUIN500 MG PO; +LIDOCAINE HCL 2% LOCAL INJ 5 ML SDV VIAL INJ ONE; +MIDAZOLAM HCL 2 MG/2 ML VIAL ONE; +MILK OF MA400 MG/5 M PO; +ONDANSETRON HCL INJ 2 MG/ML VIAL ONE; +OXYBUTYNIN CHLOR5 MG PO; +PROPOFOL IV EMULSION 10 MG/ML 20 ML VIAL ONE; +PROTONIX40 MG/ML PO; +SEVOFLURANE INHAL SOLN 250 ML PEN BTL ONE; +SODIUM BICARBO650 MG PO; +TESSALON PERLE100 MG PO; +VANCOMYCIN 1GM/NS 250 ML 250 ML ONE
--- OUTSIDE RECORDS SUMMARY | 2017-03-25 06:18 | XMS REPORT ---
Author Author [facility] Address Unknown Phone Unavailable Care Team Providers Care [place] Name Role Phone MARCEL SPARKS Unavailable Unavailable KELTON CENTENO Unavailable Unavailable Problems This patient has no known problems. Allergies, Adverse Reactions, Alerts This patient has no known allergies or adverse reactions. Medications This patient has no known medications. Results Test Description Test Time Test Comments Text Results Atomic Results Result Comments CHEST 2 VIEWS [facility] [address] [address] Patient Name: JAKE CARPIO MR #: [id number] : 1940 Age/Sex: 76/M Req #: [id number] Adm Physician: Ordered by: MARCEL SPARKS MD Report #: [id number] Location: OR Room/Bed: Procedure: [id number] DX/ CHEST 2 VIEWS Exam Date: 03/23/17 Exam Time: 1335 REPORT STATUS: Signed PROCEDURE: X-RAY CHEST, TWO VIEWS COMPARISON: Chest x-ray 11/28/16. INDICATIONS: PRE-OP ON BLADDER FINDINGS: LUNGS: Several calcified granulomata in the lateral and inferior left lung field are stable. No soft tissue mass. Lungs are diffusely hyperinflated consistent with COPD. Tracheotomy is in appropriate position and is stable. PLEURA: No effusions or pneumothorax. HEART T MEDIASTINUM: The heart is within normal size-limits. The aorta is ectatic and stable morphology. No hilar lymphadenopathy. BONES T SOFT TISSUES: No focal osseous. Soft tissues are unremarkable.. CONCLUSION: Stable chest. No active disease. Dictated by: Jun Sandhu M.D. on 2017 at 14:16 Electronically approved by: Jun Sandhu M.D. on 2017 at 14:16 Dictated By: JUN SANDHU MD [id number] Transcribed By : ANNA on 03/23/17 1416 COPY TO: MARCEL SPARKS MD CT ABDOMEN/PELVIS WO [place] [address] Patient Name: JAKE CARPIO MR #: [id number] : 1940 Age/Sex: 76/M Req #: [id number] Adm Physician: Ordered by: RAMAN DAVIS Report #: [id number] Location: ER Room/Bed: Procedure: [id number] CT/CT ABDOMEN/PELVIS WO Exam Date: 02/11/17 Exam Time: 1315 REPORT STATUS: Signed PROCEDURE: CT ABDOMEN AND PELVIS WITHOUT CONTRAST TECHNIQUE: The abdomen and pelvis were scanned utilizing a multidetector helical scanner from the diaphragm to the lesser trochanter without contrast per stone protocol. Coronal and sagittal multiplanar reformations were obtained. COMPARISON: CT abdomen and pelvis 06/05/2014. INDICATIONS: hematuria FINDINGS: ABSENCE OF INTRAVENOUS CONTRAST DECREASES SENSITIVITY FOR DETECTION OF FOCAL LESIONS AND VASCULAR PATHOLOGY. LOWER THORAX: Peribronchial cuffing. Mild dependent atelectasis. Calcified granuloma in the right lower lobe. Subtle tree in bud nodular opacities in the left lower lobe. Questionable tree in bud nodules in the right lower lo lobe. Coronary artery calcifications. HEPATOBILIARY: No focal hepatic lesions. No biliary ductal dilatation. SPLEEN: No splenomegaly. PANCREAS: No focal masses or ductal dilatation. ADRENALS: No adrenal nodules. KIDNEYS/URETERS: No hydronephrosis, or solid mass lesions. 3.5 cm simple cyst in the superior pole left kidney (series 2 image 13). Previously 3.1 cm. Right double-J ureteral stent in place. Possible 0.5 cm stone in the right renal pelvis (series 301 image 57). PELVIC ORGANS/BLADDER: Unremarkable. PERITONEUM / RETROPERITONEUM: No free air or fluid. LYMPH NODES: No lymphadenopathy. VESSELS: Severe atherosclerotic calcifications in the aorta and major arterial branches. This extends into both renal arteries. GI TRACT: No distention or wall thickening. BONES AND SOFT TISSUES: Moderate degenerative changes in the lumbar spine with moderate multilevel disc space narrowing. Large posterior disc osteophytes at L2-L3, L3-4, and L4-L5.. IMPRESSION: 1. Right double-J ureteral stent in place. No hydronephrosis. 2. 0.5 cm calcification in the right renal pelvis/sinus. This may represent a stone. However, this was present on 06/05/2014 and may also represent a vascular calcification. Patient has significant atherosclerotic calcifications in the aorta and extending into the renal arteries. 3. Bilateral lobe pneumonia. Dictated by: Rosalind Egan M.D. on 02/11/2017 at 13:56 Electronically approved by: Rosalind Egan M.D. on 02/11/2017 at 13:56 Dictated By: ROSALIND EGAN MD 1356 Transcribed By: ANNA on 02/11/17 1356 COPY TO: RAMAN DAVIS CHEST 2 VIEWS [place] [address] Patient Name: JAKE CARPIO MR #: [id number] : 1940 Age/Sex: 76/M Req #: [id number] Adm Physician: Ordered by: MARCEL SPARKS MD Report #: [id number] Location: OR Room/Bed: Procedure: [id number] DX/ CHEST 2 VIEWS Exam Date: 11/28/16 Exam Time: 1215 REPORT STATUS: Signed PROCEDURE: Frontal and lateral views of the chest. COMPARISON: 04/23/16 INDICATIONS: PREOP BLADDER SURGERY FINDINGS: Lines/tubes: Stable tracheostomy tube. Lungs: The lungs are well inflated and clear. There is no evidence of pneumonia or pulmonary edema. Tiny unchanged left lower lung field nodular densities, likely calcified granulomas. Pleura: There is no pleural effusion or pneumothorax. Heart and mediastinum: The heart and the mediastinum are normal. Bones: No acute bony abnormality. IMPRESSION: 1. No acute cardiopulmonary disease. Dictated by: Sunny Sosa M.D. on at 12:43 Electronically approved by: Sunny Sosa M.D. on at 12:43 Dictated By: SUNNY SOSA MD 1243 Transcribed By: ANNA on 11/28/16 1243 COPY TO: MARCEL SPARKS MD
--- NOTE | 2017-05-31 09:44 | Operative Report ---
DATE OF PROCEDURE: March 25, 2017 PREOPERATIVE DIAGNOSES: 1. Bladder cancer. 2. Right ureteral cancer. 3. Foreign body (left indwelling ureteral stent). POSTOPERATIVE DIAGNOSES: 1. Bladder cancer. 2. Right ureteral cancer. 3. Foreign body (left indwelling ureteral stent). OPERATIONS PERFORMED: 1. Cystourethroscopy with complicated removal of right indwelling ureteral stent (separate procedure performed for the diagnosis of stent done with separate scope). 2. Right ureteroscopy (separate procedure performed to evaluate for any residual ureteral cancer). 3. Radiological services for supervision and interpretation of ureteroscopy. 4. Interpretation of retrograde ureteropyelography. 5. Supervision of fluoroscopy, no radiologist present. 6. Cystourethroscopy with transurethral resection of medium-size bladder tumors from the bladder neck region. ANESTHESIA: General. COMPLICATIONS: None. CLINICAL SUMMARY: Rafita Randle is a 76-year-old man who was found to have bladder cancer on a hematuria workup. 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 Patient is brought to the operating room today to evaluate both cancers. He is aware of the risks of bleeding, infection, injury to adjacent structures, need for additional procedures, and elected to proceed. OPERATIVE PROCEDURE IN DETAIL: Informed consent was verified. Rafita Randle was properly identified, taken to the operating room, and placed on the cystoscopy table in supine position. Anesthesia was uneventfully begun. The patient was then carefully and gently repositioned in dorsal lithotomy position with all pressure points well padded. His genitalia were prepared and draped in usual sterile fashion. The 22.5-Nigerian cystoscope sheath with the visual obturator in place was atraumatically inserted in patient's urethra. It was guided down the unremarkable urethra through the normal sphincteric region and through the prostate bed, which exhibited prostatic hypertrophy with some visual obstruction. We entered the patient's bladder where we identified the bladder tumors at the bladder neck. No additional bladder tumors could be identified. Heavy trabeculations were noted. The stent was noted to be emerging from the right ureteral orifice. Guidewire was then placed alongside that stent and guided to level of the patient's kidney. The stent was then grasped, completely removed, and discarded. Semirigid ureteroscopy was performed on the right hand side. We passed the ureteroscope alongside the stent and guided it to the level of the patient's kidney. The semirigid ureteroscope was then brought up alongside guidewire up into the distal right ureter. We did not visualize any recurrent nor persistent cancer. There were no suspicious lesions. The flexible ureteroscope was then brought up over the guidewire and guided to the level of the patient's kidney. Careful panendoscopy was performed revealing no suspicious mucosal lesions, no tumors, no stones, and no diverticula. Interpretation of retrograde ureteropyelography: Contrast was instilled in retrograde fashion on right hand side. There were no tumors, no stones, and no diverticula. Unobstructed drainage was observed fluoroscopically. The cystoscope was reintroduced. We utilized cold cup biopsy forceps to resect and biopsy the 2 tumors at the level of the bladder neck. We then utilized the Bugbee electrode to vaporize the region around each tumor as well as provide pinpoint electrocautery. The area that we treated was approximately 3 to 4 cm. Excellent hemostasis was achieved. The patient's bladder was drained. The patient was uneventfully reversed from anesthesia and taken to recovery room in stable condition. There were no complications to the procedure. He tolerated the procedure well. Explicit postoperative instructions were given. Will follow the patient up in the office at which point will plan on proceeding with a first of 6 BCG intravesical immunotherapy treatments. Job#: [id number]
== END | disposition home or self-care (01) ==
LOC: OR 06:15
PROVIDERS: ATTEND Urology
DX: C67.5 Malignant neoplasm of bladder neck (principal); C66.1 Malignant neoplasm of right ureter; Z46.6 Encounter for fitting and adjustment of urinary device; N40.1 Benign prostatic hyperplasia with lower urinary tract symptoms; N13.8 Other obstructive and reflux uropathy; N32.89 Other specified disorders of bladder; N32.81 Overactive bladder; R35.1 Nocturia; N39.41 Urge incontinence; R39.14 Feeling of incomplete bladder emptying; R35.0 Frequency of micturition; R39.15 Urgency of urination; E11.22 Type 2 diabetes mellitus with diabetic chronic kidney disease; I12.9 Hypertensive chronic kidney disease with stage 1 through stage 4 chronic kidney disease, or unspecified chronic kidney disease; N18.9 Chronic kidney disease, unspecified; K40.20 Bilateral inguinal hernia, without obstruction or gangrene, not specified as recurrent; R00.1 Bradycardia, unspecified; F41.9 Anxiety disorder, unspecified; F17.200 Nicotine dependence, unspecified, uncomplicated; Z01.810 Encounter for preprocedural cardiovascular examination; Z01.812 Encounter for preprocedural laboratory examination; Z01.818 Encounter for other preprocedural examination; Z79.82 Long term (current) use of aspirin; Z85.21 Personal history of malignant neoplasm of larynx
CPT/HCPCS: 36415 ×2; 52235; 52351; 71046; 74420; 80048; 82948; 85025; 88305; 93005; J1100; J1580; J2001; J2250; J2405; J3370; Q9967

== ENCOUNTER 2017-04-09 10:29 | Inpatient (IN) | payer MEDICARE ==
[~2017-04-09] VITALS: Ht 175.3 cm; Wt 50.5 kg
[~2017-04-09 10:29] MED LIST changes: -AMIODARONE HCL200 MG PO; -BELLADONNA/OPIUM 60 MG SUPP PR ONE; -DEXAMETHASONE SOD PHOS INJ 4 MG/ML VIAL ONE; -FENTANYL CITRATE/PF 100MCG/2 ML INJ ONE; -GENTAMICIN 80MG/NS 100 ML 200 ML IV ONE; -IOPAMIDOL 610MG/1ML 300 MG/ML VIAL IV ONE; -LIDOCAINE HCL 2% LOCAL INJ 5 ML SDV VIAL INJ ONE; -MIDAZOLAM HCL 2 MG/2 ML VIAL ONE; -MILK OF MA400 MG/5 M PO; -ONDANSETRON HCL INJ 2 MG/ML VIAL ONE; -PROPOFOL IV EMULSION 10 MG/ML 20 ML VIAL ONE; -PROTONIX40 MG/ML PO; -SEVOFLURANE INHAL SOLN 250 ML PEN BTL ONE; -SODIUM BICARBO650 MG PO; -TESSALON PERLE100 MG PO; -VANCOMYCIN 1GM/NS 250 ML 250 ML ONE
[2017-04-09] MEDS ORDERED: METOPROLOL TARTRATE INJ 1 MG/ML VIAL ONE (10:58)
[2017-04-09] MEDS ORDERED: METOPROLOL TARTRATE INJ 1 MG/ML VIAL IV ONE (11:00)
[2017-04-09 11:13] LABS: HEMATOCRIT 38.6 % (38.2-49.6); HEMOGLOBIN 12.2 g/dL (14.0-18.0); MEAN CORPUSCULAR VOLUME 84.8 fL (81-99); RED BLOOD COUNT 4.55 x10e6/uL (4.3-5.7)
[2017-04-09 11:14] LABS: BASOPHILS % 0.4 % (0.0-1.0); EOSINOPHILS # (AUTO) 0.1 (0.0-0.4); EOSINOPHILS % 0.7 % (0.0-6.0); LYMPHOCYTES % 13.8 % (18.0-39.1); MEAN CORPUSCULAR HEMOGLOBIN 26.8 pg (28-32); MEAN CORPUSCULAR HGB CONC 31.6 g/dL (31-35); MONOCYTES # (AUTO) 0.7 (0.2-0.8); MONOCYTES % 9.8 % (4.4-11.3); NEUTROPHILS # (AUTO) 5.6 (2.1-6.9); PLATELET COUNT 443 x10e3/uL (140-360); RED CELL DISTRIBUTION WIDTH 13.4 % (11.7-14.4)
[2017-04-09 11:28] LABS: INR 1.19; PROTHROMBIN TIME 14.2 seconds (11.9-14.5)
[2017-04-09 11:29] LABS: PARTIAL THROMBOPLASTIN TIME 39.4 seconds (23.8-35.5)
--- NOTE | 2017-04-09 11:34 | Diagnostic Imaging Report ---
PROCEDURE: A single AP view of the chest. COMPARISON: Patients [facility], , CHEST 2 VIEWS, 03/23/2017, 13:38. INDICATIONS: CHEST PAIN FINDINGS: Lines/tubes: Tracheostomy tube in place.. Lungs: The lungs are well-inflated. Patchy airspace opacity in the right lower lung. Left lung is grossly clear. Pleura: There is no pleural effusion or pneumothorax. Heart and mediastinum: Cardiac silhouette is unremarkable. Pulmonary vasculature is normal. Tortuous aorta. Bones: No acute bony abnormality. IMPRESSION: 1. patchy air space opacity in the right lower lung may represent developing pneumonia, in the appropriate clinical setting versus aspiration. Raj Tatum M.D. Dictated by: Raj Tatum M.D. on 04/09/2017 at 11:34 Electronically approved by: Raj Tatum M.D. on 04/09/2017 at 11:34
[2017-04-09 11:36] LABS: ALBUMIN 3.5 g/dL (3.5-5.0); ALBUMIN/GLOBULIN RATIO 0.8 (0.8-2.0); CREATININE, SERUM 3.4 mg/dL (0.72-1.25)
[2017-04-09 11:39] LABS: CALCIUM 9.7 mg/dL (8.4-10.2)
[2017-04-09 11:45] LABS: B-TYPE NATRIURETIC PEPTIDE2 102.5 pg/mL (0-100)
[2017-04-09] MEDS ORDERED: CEFEPIME HCL 1 GM VIAL IV STA (11:54)
[2017-04-09 11:57] LABS: CREATINE KINASE MB 0.8 ng/mL (0-5.0); THYROID STIMULATING HORMONE 0.971 uIU/mL (0.350-4.940)
[2017-04-09] MEDS ORDERED: SOD POLYSTYRENE SULFONATE SUSP 15 GM/60 ML BTL PO NR (12:00)
[2017-04-09] MEDS ORDERED: SODIUM CHLORIDE 0.9% 1000 ML BAG IV ONE (12:00)
[2017-04-09] MEDS ORDERED: AZITHROMYCIN 500MG/NS 250 ML 250 ML IV ONE (12:00)
[2017-04-09] MEDS ORDERED: INSULIN REGULAR, HUMAN 100 UNIT/1 ML 3ML VIAL IV STA (12:01)
[2017-04-09] MEDS ORDERED: DEXTROSE 50% SYRINGE 50 ML IV NR (12:30)
[2017-04-09] MEDS ORDERED: ASPIRIN 81 MG CHEW TAB PO ONE (12:30)
[2017-04-09] MEDS ORDERED: DIPHENHYDRAMINE HCL INJ 50 MG/ML VIAL IV ONE (13:45)
[2017-04-09] MEDS: SODIUM CHLORIDE 0.9% 1000ML 1,000 ML IV SCH ×2 (14:22→19:56)
[2017-04-09] MEDS ORDERED: ACETAMINOPHEN 325 MG TAB PO PRN (17:30)
[2017-04-09] MEDS ORDERED: OXAZEPAM 15 MG CAP PO PRN (17:30)
[2017-04-09] MEDS ORDERED: MAGNESIUM HYDROXIDE 30 ML UDC PO PRN (17:30)
[2017-04-09] MEDS ORDERED: AMIODARONE HCL 200 MG TAB PO SCH (18:15)
--- NOTE | 2017-04-09 19:25 | Consultation ---
DATE OF CONSULTATION: April 09, 2017 PULMONARY CONSULTATION A charming but unfortunate 76-year-old gentleman admitted with shortness of breath of several days duration. Stress at home living with his ex-, has been anxious. He was weak this morning and could not get out of bed without her assistance. History of remote carcinoma of the larynx in 2002, treated with radiation with a history of bladder cancer followed by Dr. Torres. High-grade papillary urethral cancer. He has continued to smoke. He has history of diabetes and hypertension. He has a tracheostomy. MEDICATIONS: Levoxyl, lisinopril, Oxybutynin and Valium. SOCIAL HISTORY: He worked in construction. He was born in [place]. FAMILY HISTORY: Noncontributory. PHYSICAL EXAMINATION GENERAL: He is a thin, white male lying on his right side with tracheostomy in place. He has had a history of PEG tube in the past. This has been removed. LUNGS: Diminished breath sounds. HEART: Regular rhythm now and irregularly irregular on admission. ABDOMEN: Nontender. EXTREMITIES: Not edematous. IMPRESSION 1. Paroxysmal atrial fibrillation. 2. Chronic kidney disease. 3. Hyperkalemia. 4. Rule out renal obstruction. RECOMMENDATIONS: Request cardiology, and renal opinions. Continue IV fluids. Hold lisinopril. Kayexalate has been given by the emergency room physician. Thank you for this kind referral. Job#: [id number]
[2017-04-09 20:16] VITALS: BP 147/84
[2017-04-09 20:20] VITALS: BP 147/84
[2017-04-09] MEDS ORDERED: HEPARIN SOD (PORCINE) 5,000 UNIT/ML VIAL SC SCH (21:00)
[2017-04-09] MEDS ORDERED: ENOXAPARIN SOD INJ 60 MG/0.6 ML SYR SC SCH (21:00)
[2017-04-09] MEDS: ENOXAPARIN 30 MG/0.3 ML SYR SC SCH (23:20)
[2017-04-09 23:46] VITALS: BP 150/72
[2017-04-10] VITALS (7 sets, daily range): BP systolic 128–154; BP diastolic 66–81
[2017-04-10] MEDS: SODIUM CHLORIDE 0.9% 1000ML 1,000 ML IV SCH (04:48)
[2017-04-10 05:23] LABS: BILIRUBIN,URINE NEGATIVE (NEGATIVE); KETONES,URINE 1+ (NEGATIVE); LEUKOCYTE ESTERASE ,URINE NEGATIVE (NEGATIVE); NITRITE,URINE NEGATIVE (NEGATIVE); PROTEIN,URINE DIPSTICK NEGATIVE (NEGATIVE); URINE UROBILINOGEN 0.2 mg/dL (0.2 - 1)
[2017-04-10 05:24] LABS: CLARITY,URINE CLEAR (CLEAR); COLOR,URINE YELLOW (YELLOW)
[2017-04-10 05:33] LABS: BACTERIA,URINE FEW /HPF; EPITHELIAL CELLS,URINE RARE /LPF; RBC,URINE 0-5 /HPF (0-5); WBC,URINE (MAN) 0-5 /HPF (0-5)
[2017-04-10 06:23] LABS: BASOPHILS % 0.4 % (0.0-1.0); EOSINOPHILS # (AUTO) 0.1 (0.0-0.4); EOSINOPHILS % 1.2 % (0.0-6.0); HEMATOCRIT 29.9 % (38.2-49.6); HEMOGLOBIN 9.3 g/dL (14.0-18.0); LYMPHOCYTES % 20.9 % (18.0-39.1); MEAN CORPUSCULAR HEMOGLOBIN 26.7 pg (28-32); MEAN CORPUSCULAR HGB CONC 31.1 g/dL (31-35); MEAN CORPUSCULAR VOLUME 85.9 fL (81-99); MONOCYTES # (AUTO) 0.5 (0.2-0.8); NEUTROPHILS # (AUTO) 3.3 (2.1-6.9); NEUTROPHILS % 67.1 % (38.7-80.0); PLATELET COUNT 317 x10e3/uL (140-360); RED BLOOD COUNT 3.48 x10e6/uL (4.3-5.7); RED CELL DISTRIBUTION WIDTH 13.4 % (11.7-14.4)
[2017-04-10 06:44] LABS: ANION GAP 15.2 mmol/L (8-16); CALCIUM 8.2 mg/dL (8.4-10.2); CREATININE, SERUM 2.54 mg/dL (0.72-1.25); POTASSIUM 5.2 mmol/L (3.5-5.1)
[2017-04-10 06:55] LABS: CREATINE KINASE MB 0.7 ng/mL (0-5.0)
--- NOTE | 2017-04-10 06:57 | History and Physical ---
PRIMARY CARE PHYSICIAN: Dr. Ezra Ramirez UROLOGIST: Dr. Chon Torres CHIEF COMPLAINT: Not feeling well. HISTORY OF PRESENT ILLNESS: This is a 76-year-old man with a history of chronic respiratory failure who has a trach collar in place on room air. Came to the hospital not feeling well, and found to be in atrial fibrillation with rapid ventricular response. Heart rate as high as 177. The patient was treated with 1 dose of IV metoprolol and the rhythm broke. The patient went into sinus rhythm. He is admitted for further evaluation and management. He feels better after treatment. Denies any chest pain. Denies any nausea or vomiting. PAST MEDICAL HISTORY: Chronic respiratory failure with trach collar in place on room air, bladder polyp, status post removal in the fall by Dr. Torres, cigarette abuse with continued use of 1-pack a day, laryngeal cancer diagnosed in 2002, status post radiation therapy, status post tracheostomy placement, diabetes mellitus, anxiety/depression, hypothyroidism, hypertension, failure to thrive, severe dehydration, severe protein calorie malnutrition, chronic kidney disease, stage 3/diabetic nephropathy, ureteral disease, status post right double J-ureteral stent placement, atrial fibrillation, sinus bradycardia in February 2017. PAST SURGICAL HISTORY: Double J-stent placement to the right ureter, tracheostomy placement. ALLERGIES: PER ELECTRONIC MEDICAL RECORD. FAMILY HISTORY: The patient is . He has 2 children. Lives alone. Continues to smoke cigarettes. Has been smoking 1-pack per day recently. No alcohol or illicits. MEDICATIONS: Per electronic medical record. REVIEW OF SYSTEMS: Denies any dizziness or chest pain. PHYSICAL EXAMINATION VITAL SIGNS: Have been reviewed. GENERAL: A tired-appearing man resting in bed. HEENT: Anicteric. He has a T-collar in place to room air. Bilateral temporal wasting. CARDIOVASCULAR: Normal S1 and S2. LUNGS: He has mildly coarse breath sounds. ABDOMEN: Soft, nontender and nondistended. EXTREMITIES: He has no edema or calf tenderness. NEUROLOGICAL: He is alert and oriented times 3. He moves all extremities. SKIN: Dry. PSYCHIATRIC: Normal affect. LABS: Reviewed. MEDICATIONS: Reviewed. ASSESSMENT AND PLAN: This is a 76-year-old man with: 1. Atrial fibrillation with rapid ventricular response: This rhythm has resolved after being given intravenous beta reymundo. The patient has a history of atrial fibrillation, and has been managed by Dr. Kong Barreto in the past. He has had a recent echocardiogram. I am not able to find the echocardiogram here. I will defer to Dr. Kong Barreto regarding management. Currently, the patient is on Lovenox q.12 h. He is also on amiodarone. Will change it to 200 mg daily. Will discontinue prophylactic heparin while he is on Lovenox. His TSH is normal. 2. Right lung pneumonia: Will continue antibiotics and follow up cultures. Will obtain sputum culture. 3. Hyperkalemia in the setting of chronic kidney disease, stage 3: His potassium is 6. Will recheck now. 4. Acute kidney injury in the setting of chronic kidney disease, stage 3/diabetic nephropathy: Will rehydrate and then reassess this morning. 5. Diabetes mellitus: Will obtain hemoglobin A1c and lipid panel. 6. Cough: Will use antitussive medication. 7. Bilateral temporal wasting: Obtain prealbumin. Nutrition consultation. 8. Physical deconditioning: Physical therapy consultation. 9. Influenza screening negative. 10. Hypothyroidism: Continue Synthroid. TSH less than 2.5. 11. Anxiety disorder: Continue Valium reduced to 10 mg at bedtime. 12. History of hematuria: Will monitor while he is on anticoagulants. If he begins to bleed, will need to reconsult Dr. Chon Torres. 13. Prophylaxis: Will use Pantoprazole while he is on anticoagulation. 14. Disposition: Follow up with cardiology recommendations. Continue antibiotic treatment for pneumonia. Monitor heart rate. Follow up with Dr. Barreto's recommendations. Job#: [id number] THOMAS
[2017-04-10] MEDS: AZITHROMYCIN 500MG/NS 250 ML 250 ML IV SCH (08:09)
[2017-04-10] MEDS: OXYBUTYNIN CHLORIDE 5 MG TAB PO SCH ×2 (08:09→16:31)
[2017-04-10] MEDS: CEFEPIME HCL 1 GM VIAL IV SCH (08:09)
[2017-04-10] MEDS: LEVOTHYROXINE SODIUM 75 MCG TAB PO SCH (08:09)
[2017-04-10] MEDS: AMIODARONE HCL 200 MG TAB PO SCH (08:09)
[2017-04-10] MEDS: BENZONATATE 100 MG CAP PO SCH ×3 (08:10→21:00)
[2017-04-10] MEDS: ENOXAPARIN 30 MG/0.3 ML SYR SC SCH ×2 (08:10→21:00)
[2017-04-10] MEDS: PANTOPRAZOLE SOD 40 MG TABEC PO SCH (08:10)
[2017-04-10] MEDS ORDERED: LISINOPRIL 10 MG TAB PO SCH (09:00)
[2017-04-10] MEDS ORDERED: SODIUM BICARBONATE 8.4% 75 ML in DEXTROSE 5% 1,000 ML IV ONE (11:00)
--- NOTE | 2017-04-10 11:05 | Consultation ---
DATE OF CONSULTATION: REASON FOR CONSULTATION: Chronic kidney disease, stage 4 with CHELSEA on CKD. HPI: Mr. Randle is a pleasant 76-year-old man admitted to [facility] yesterday. He has a history of chronic respiratory failure, and is now on trach collar. He presented to the emergency department yesterday in atrial fibrillation with rapid ventricular response. His heart rate was as high as 179 beats per minute. He has been admitted for further evaluation in that regard. Upon my exam, he denies chest pain, palpitations, nausea, or shortness of breath. In regards to his kidney disease, he states he does not follow with a prop maker, and was unaware if he had kidney disease. Upon presentation, his creatinine was 3.4 mg/dL, and has improved to 2.5 mg/dL. PAST MEDICAL HISTORY 1. Chronic respiratory failure, status post trach. 2. Laryngeal cancer, status post radiation. 3. Diabetes. 4. Hypertension. 5. Diabetic nephropathy. 6. Atrial fibrillation. PAST SURGICAL HISTORY 1. Double J-stent placement to the right ureter. 2. Tracheostomy placement. ALLERGIES: NO KNOWN DRUG ALLERGIES. SOCIAL HISTORY: Denies alcohol, tobacco or illicit drug use. He used to smoke a pack a day. FAMILY HISTORY: No renal disease. MEDICATIONS: Reviewed in electronic medical record. REVIEW OF SYSTEMS: Denies fevers, chills, nausea, vomiting, diarrhea, chest pain, palpitations, abdominal pain, pain or burning with urination, numbness or tingling in the upper or lower extremities, changes in mood, change in appetite, change in thirst PHYSICAL EXAMINATION GENERAL: He is lying comfortably in bed in no acute distress. VITAL SIGNS: Temperature 99.6, heart rate 57, respiratory rate 20, blood pressure 153/81, O2 sat is 93% on 8 L nasal cannula. HEENT: NCAT. EOMI. NECK: Supple. JVP not appreciated. LUNGS: Clear to auscultation anteriorly. HEART: Irregularly irregular rhythm. ABDOMEN: Soft and nontender. Positive bowel sounds. EXTREMITIES: No edema. intact pulses. SKIN: No rashes or lesions. MUSCULOSKELETAL: Normal on inspection. NEURO: Cranial nerves II-XII are grossly intact. No focal deficit. LABS: Reviewed in electronic medical record. Potassium on presentation was 6 mEq/dL and has improved to 5.2 mEq/dL after a dose of Kayexalate, IV fluids and holding off on lisinopril. IMAGING: Was reviewed in electronic medical record. Chest x-ray performed on presentation today showed patchy airspace opacity in the right lower lung that may represent developing pneumonia. ASSESSMENT AND PLAN: Mr. Randle is a 76-year-old man who presents with nonoliguric acute kidney injury on chronic kidney disease in the setting of likely ischemic acute tubular necrosis from atrial fibrillation with rapid ventricular response. 1. Nonoliguric acute kidney injury on chronic kidney disease: Creatinine at baseline is 1.5 to 2 mg/dL. Upon presentation, it was 3.4 but has improved with hydration. Will continue intravenous fluids for today. Continue to dose medications per current renal function. 2. Hyperkalemia, improved: Status post Kayexalate and holding lisinopril. Agree with holding the lisinopril for now. 3. Metabolic acidosis: Bicarb 21 from 23 on presentation. Suspect secondary to NS as the pH of NS is 5.5. Will switch the intravenous fluids to D5 with 1 amp of bicarb. This will correct the hyperkalemia, metabolic acidosis, and since it will be hypotonic to the sodium, will also correct the hypernatremia. Thank you for allowing me to participate in the care of Mr. Randle. I will continue to follow closely. Job#: [id number] THOMAS IBARRA
[2017-04-10 16:10] LABS: ANION GAP 17.5 mmol/L (8-16); CALCIUM 8.1 mg/dL (8.4-10.2); CREATININE, SERUM 2.23 mg/dL (0.72-1.25); POTASSIUM 4.5 mmol/L (3.5-5.1)
--- NOTE | 2017-04-10 18:59 | Diagnostic Imaging Report ---
PROCEDURE:US RETROPERITONEAL ( KIDNEY ). COMPARISON:Patients [facility], US, US RETROPERITONEAL ( KIDNEY )., 04/24/2016, 16:44. INDICATIONS:ATN TECHNIQUE: Benitez-scale and color sonographic images of the bilateral kidneys and bladder where obtained in transverse and longitudinal planes. FINDINGS: RIGHT KIDNEY: 9.9 cm, cortex 1.0 cm Cysts: 1.3 x 1.2 x 1.3 cm cystic, hypoechoic, partially exophytic lesion in the mid aspect, stable Solid masses: None Stones: None Hydronephrosis: None Echogenicity: Normal LEFT KIDNEY: 11.6 cm, cortex 1.1 cm Cysts: 3.4 x 3.4 x 3.8 cm cystic, hypoechoic, mostly exophytic lesion in the superior pole, stable Solid masses: None Stones: None Hydronephrosis: None Echogenicity: Normal Bladder: Mild circumferential bladder wall thickening, without focal lesions. Ureteral jet is not visualized. Prostate: 3.5 x 2.0 x 4.8 cm (estimated volume 16.8 CC). CONCLUSION: 1. Normal bilateral renal size, and echogenicity. No hydronephrosis or obstruction. 2. Stable bilateral simple appearing cysts. 3. Mild circumferential bladder wall thickening, which may reflect cystitis, in the appropriate clinical setting Raj Tatum M.D. Dictated by: Raj Tatum M.D. on 04/10/2017 at 18:59 Electronically approved by: Raj Tatum M.D. on 04/10/2017 at 18:59
[2017-04-11] VITALS: BP 136/63
[2017-04-11 04:00] VITALS: BP 135/72
[2017-04-11] MEDS: LEVOTHYROXINE SODIUM 75 MCG TAB PO SCH (06:35)
[2017-04-11 07:06] LABS: ANION GAP 14.7 mmol/L (8-16); CALCIUM 8.3 mg/dL (8.4-10.2); CREATININE, SERUM 1.88 mg/dL (0.72-1.25); MAGNESIUM 1.5 MG/DL (1.3-2.1); PHOSPHORUS 2.2 MG/DL (2.3-4.7); POTASSIUM 3.7 mmol/L (3.5-5.1)
[2017-04-11 07:46] VITALS: BP 103/73
[2017-04-11 08:08] VITALS: BP 103/73
[2017-04-11] MEDS: CEFEPIME HCL 1 GM VIAL IV SCH (09:24)
[2017-04-11] MEDS: OXYBUTYNIN CHLORIDE 5 MG TAB PO SCH ×2 (09:25→16:49)
[2017-04-11] MEDS: PANTOPRAZOLE SOD 40 MG TABEC PO SCH (09:25)
[2017-04-11] MEDS: BENZONATATE 100 MG CAP PO SCH ×3 (09:25→20:53)
[2017-04-11] MEDS: ENOXAPARIN 30 MG/0.3 ML SYR SC SCH ×2 (09:25→20:54)
[2017-04-11] MEDS: AMIODARONE HCL 200 MG TAB PO SCH (09:25)
[2017-04-11] MEDS: AZITHROMYCIN 500MG/NS 250 ML 250 ML IV SCH (09:25)
[2017-04-11 10:36] VITALS: BP 103/73
--- NOTE | 2017-04-11 13:07 | Progress Note ---
DATE: April 11, 2017 REASON FOR CONSULTATION: CKD stage 4. SUBJECTIVE: Breathing improved considerably. No acute events overnight. OBJECTIVE: GENERAL: No acute distress, remains on trach. VITAL SIGNS: Temperature 99.5, heart rate 74, respiratory rate 22, blood pressure is 103/73. HEENT: Trach site clean and dry. LUNGS: Rhonchorous breath sounds bilaterally. HEART: Regular rate and rhythm. EXTREMITIES: No edema. LABS: Reviewed in electronic medical record. Hemoglobin 12.2 from 9.3 yesterday. Sodium 147 mEq/L last night and 144 mEq/L this morning, creatinine of 1.8 mg/dL from 2.2 mg/dL yesterday and bicarb of 25 mmol/L from 21 mmol/L yesterday. IMAGING: Reviewed in electronic medical record. Renal ultrasound performed yesterday showed no echogenicity, no hydronephrosis upon mention of the stent that had been placed previously and then, there is mild circumferential bladder wall thickening which may reflect cystitis. MEDICATIONS: Reviewed in the electronic medical record. ASSESSMENT AND PLAN 1. Hypernatremia, improved. Stop D5 with bicarb. 2. Metabolic acidosis, improved. Stop D5 with acidosis. 3. Hyperkalemia, improved. 1. Acute kidney injury on chronic kidney disease, stage 4. Kidney function improving significantly with hydration. I have stopped IVF for now. P.o. intake improving. 2. Atrial fibrillation with rapid ventricular response. Heart rate better controlled. 3. Community-acquired pneumonia on antibiotics, renally dosed. Job#: [id number] VAS
--- NOTE | 2017-04-11 16:08 | Cardiology Report ---
DATE OF STUDY: April 09, 2017 ECHOCARDIOGRAM M-MODE: Suboptimal study with poor image quality. Normal chamber wall dimensions. Borderline left ventricular contractility. Normal mitral, aortic and tricuspid valves. No pericardial effusion. SECTOR SCAN: Suboptimal study with poor image quality. Normal chamber wall dimensions. Borderline left ventricular contractility. Ejection fraction 45% to 50%. Mitral annulus sclerotic. Aortic and tricuspid valves are normal. There is no pericardial effusion. CARDIAC DOPPLER STUDY WITH COLOR: Trace tricuspid regurgitation. CONCLUSIONS 1. Suboptimal study with poor image quality. 2. Left ventricular ejection fraction is approximately 45% to 50%. 3. Borderline enlarged left atrium with sclerosis of the mitral valve annulus. 4. Trace tricuspid regurgitation. Job#: [id number] cc:CHERIE REDMAN M.D.
--- NOTE | 2017-04-11 18:10 | Progress Note ---
DATE: April 11, 2017 TIME: 1515 hours. MEDICINE PROGRESS NOTE SUBJECTIVE: No acute events overnight. One episode of large reddish dark stool per nursing staff. REVIEW OF SYSTEMS: Patient reports feeling good without complaints of chest pain, nausea, vomiting, dizziness. Patient reports once elicited some shortness of breath on exertion and intermittent cough, slightly productive via trach. PHYSICAL EXAMINATION VITAL SIGNS: T 99.5 this a.m., P 74, respirations 24, BP 103/73, pulse ox 95% via trach collar. GENERAL: This is a very tired, emaciated man, found resting supine in bed. HEENT: The patient is anicteric/normocephalic with nontender sinuses. Oral mucosa dry and intact. He has a T-collar in placed at room air. Bilateral temporal wasting noted. CARDIOVASCULAR: Normal S1 and S2 with telemetry reviewed, elevated T-wave present. No clicks, murmurs, or rubs. LUNGS: Coarse breath sounds noted on expiration to right middle and lower calabrese, mildly coarse to left calabrese. ABDOMEN: Soft, nontender, and nondistended. EXTREMITIES: No calf tenderness, clubbing, or edema is noted. NEUROLOGICAL: Patient is alert, oriented times 3 and moves all extremities with +2 bilateral web services developer strength noted. SKIN: Dry. PSYCHIATRIC: Normal affect. LABS: WBCs yesterday a.m. 4.8 with H and H 9.3 and 29.9 respectively. Chemistries this a.m. included sodium of 144, potassium of 3.7, chloride 108, CO2 of 25, gaps improved to 14.7 and BUN has improved to 34, along with improving creatinine, which is now 1.88. Phosphorus and calcium are both noted to be low at 2.2 and 8.3 respectively. MEDICATIONS: The patient is currently taking; 1. Protonix 40 mg p.o. daily. 2. Amiodarone 200 mg p.o. daily. 3. Tessalon Perles 100 mg t.i.d. p.o. 4. Lovenox 30 mg q.12 hours. 5. Ditropan 5 mg p.o. b.i.d. 6. Azithromycin IV daily. 7. Cefepime 1 g IV daily. 8. Levothyroxine 75 mcg a.c. breakfast daily. 9. P.r.n. Tylenol for pain or temperature. 10. P.r.n. mag hydroxide for constipation. 11. Serax for insomnia at bedtime. ASSESSMENT AND PLAN: This is a 76-year-old man with; 1. Atrial fibrillation with rapid ventricular response: Patient is now in sinus rhythm with p.o. amiodarone. Dr. Barreto consulted for management. Additionally, patient is on Lovenox as above. TSH is within normal limits. 2. Right PNA. Sputum culture pending. Continue with azithromycin and cefepime. 3. Hyperkalemia in the setting of chronic kidney disease. Potassium improving. Nephrology note reviewed and lab pending in a.m. 4. Diabetes mellitus. Hemoglobin A1c result noted to be 5.4. We will obtain lipid panel prior to discharge; however, patient per nutrition note is with severe protein-calorie malnutrition and reports very little intake as is. 5. Cough. Medications as ordered. 6. Bilateral temporal wasting. Nutrition consult signs the patient with interventions that include general healthful diet, scheduled for intake, commercial supplementation medications, daily multivitamins. Albumin noted to be 3.5 on admission values. 7. Physical deconditioning. Physical therapy consultation. 8. History of hypothyroidism. Synthroid resumed. TSH noted to be 0.97, thyroxine was 8.08, and T3 uptake was 27.99. 9. Anxiety disorder. Benzos at bedtime. 10. History of hematuria. Dr. Torres has been consulted and per nursing staff is pending further urological intervention following PNA resolution. 13. Prophylaxis. Lovenox and Protonix. 14. Disposition. Continue IV antibiotic treatment for right PNA. Atrial fibrillation with rapid ventricular has resolved with p.o. amiodarone. Continue nephrology recommendations for improving BNP and obtain nutritional consult. Add multivitamin when patient steps down to lower level of care. Followup lab valves in a.m. Dictated By: Lady Khan NP Job#: [id number] VAS
[2017-04-11 20:00] VITALS: BP 108/59
[2017-04-12] VITALS (9 sets, daily range): BP systolic 100–161; BP diastolic 55–81
[2017-04-12] MEDS ORDERED: LEVOTHYROXINE SODIUM 75 MCG TAB PO SCH (06:00)
[2017-04-12 06:44] LABS: BASOPHILS % 0.6 % (0.0-1.0); EOSINOPHILS # (AUTO) 0.1 (0.0-0.4); EOSINOPHILS % 1.5 % (0.0-6.0); HEMATOCRIT 29.7 % (38.2-49.6); HEMOGLOBIN 9.5 g/dL (14.0-18.0); LYMPHOCYTES # (AUTO) 1.1 (1.0-3.2); LYMPHOCYTES % 21.1 % (18.0-39.1); MEAN CORPUSCULAR HEMOGLOBIN 26.8 pg (28-32); MEAN CORPUSCULAR VOLUME 83.9 fL (81-99); MONOCYTES # (AUTO) 0.4 (0.2-0.8); MONOCYTES % 7.6 % (4.4-11.3); NEUTROPHILS # (AUTO) 3.7 (2.1-6.9); NEUTROPHILS % 68.8 % (38.7-80.0); PLATELET COUNT 291 x10e3/uL (140-360); RED BLOOD COUNT 3.54 x10e6/uL (4.3-5.7); RED CELL DISTRIBUTION WIDTH 12.9 % (11.7-14.4)
[2017-04-12 06:59] LABS: ANION GAP 15.4 mmol/L (8-16); CALCIUM 8.3 mg/dL (8.4-10.2); CREATININE, SERUM 1.52 mg/dL (0.72-1.25); MAGNESIUM 1.5 MG/DL (1.3-2.1); PHOSPHORUS 2.5 MG/DL (2.3-4.7); POTASSIUM 3.4 mmol/L (3.5-5.1)
[2017-04-12] MEDS: LEVOTHYROXINE SODIUM 75 MCG TAB PO SCH (07:47)
[2017-04-12] MEDS ORDERED: DIPHENHYDRAMINE HCL 25 MG CAP PO PRN (09:00)
[2017-04-12] MEDS: CEFEPIME HCL 1 GM VIAL IV SCH (09:13)
[2017-04-12] MEDS: AZITHROMYCIN 500MG/NS 250 ML 250 ML IV SCH (09:14)
[2017-04-12] MEDS: BENZONATATE 100 MG CAP PO SCH ×3 (09:14→21:00)
[2017-04-12] MEDS: OXYBUTYNIN CHLORIDE 5 MG TAB PO SCH ×2 (09:14→16:30)
[2017-04-12] MEDS: AMIODARONE HCL 200 MG TAB PO SCH (09:15)
[2017-04-12] MEDS: PANTOPRAZOLE SOD 40 MG TABEC PO SCH (09:15)
[2017-04-12] MEDS: ENOXAPARIN 30 MG/0.3 ML SYR SC SCH ×2 (09:15→21:00)
[2017-04-12] MEDS ORDERED: POTASSIUM CHLORIDE 20 MEQ TAB CR PO NR ×2 (12:00→13:30)
--- NOTE | 2017-04-12 12:51 | Progress Note ---
DATE: April 12, 2017 TIME: 10:15 a.m. MEDICINE PROGRESS NOTE SUBJECTIVE: No acute events overnight. One episode of asymptomatic bradycardia noted per telemetry monitoring. REVIEW OF SYSTEMS: The patient reports feeling fair without complaint of chest pain, nausea, vomiting or dizziness. The patient reports continued shortness of breath on exertion and intermittent nonproductive cough. Additionally, the patient with new complaint this a.m. of slight itch disseminated all over following med administration. OBJECTIVE VITAL SIGNS: T 98.9, tympanic, pulse 53 and asymptomatic and regular rate and rhythm, respiratory rate 18, blood pressure 146/79. GENERAL: This is a very tired, emaciated man, found in the right lateral position in bed. HEENT: Normocephalic with nontender sinuses. Oral mucosa is moist and intact this day. He has positive T collar at room air. Bilateral temporal wasting. CARDIOVASCULAR: S1 and S2 noted per auscultation without clicks, murmurs or rub. Telemetry reviewed, noted bradycardia. LUNGS: Fine vesicular breath sounds noted to right, middle and lower lobes. Clear on left field. ABDOMEN: Soft, nontender, and nondistended. EXTREMITIES: No extremity edema or calf tenderness present. NEUROLOGICAL: Patient is alert, oriented times 3 and moves all extremities. Extraocular motor movements intact. SKIN: Dry. PSYCHIATRIC: Normal affect. LABORATORY DATA: A.m. white count significant for a hemoglobin of 9.5 and hematocrit of 29.7. MCH 26.8. Chemistry this a.m. 142 for the sodium, potassium 3.4, chloride 106, carbon dioxide 24, anion gap 15.4. BUN improved to 27, creatinine improving at 1.52 and GFR is improving at 45. Calcium 8.3 this a.m. MEDICATIONS: Reviewed. ASSESSMENT AND PLAN: This is a 76-year-old man with: 1. Atrial fibrillation with rapid ventricular response. Bradycardia now noted this a.m. with p.o. amiodarone per Dr. Barreto. Continue to monitor symptomatic syncope. Defer to cardiology with telemetry monitoring. Continue Lovenox. 2. Right pneumonia. Sputum culture collection still pending. Continue IV Zithromax and cefepime. Breath sounds improving. 3. Hyperkalemia in the setting of chronic kidney disease. Potassium at 3.4 this a.m. Continue with nephrology recommendations. 4. Diabetes mellitus type 2. A1c obtained upon admission. Nutrition consult noted. Continue Glucerna supplementation. 5. Improving. Medications as ordered. 6. Bilateral temporal wasting. Follow up nutritional consult recommendations which includes commercial supplementation, daily multivitamins. 7. Physical deconditioning. Physical therapy consult. 8. History of hypothyroidism. Synthroid. 9. Anxiety disorder. Will continue nightly benzodiazepines. 10. History of hematuria. Urologic consult. Further urological intervention is pending with resolution of pneumonia. 11. Prophylaxis: Lovenox and Protonix. DISPOSITION: We will continue IV antibiotic treatment for right pneumonia. Defer to cardiology if bradycardia becomes symptomatic; however, we will maintain the patient on telemetry and pulse oximetry monitoring should he transfer out of the IMU unit. Nephrology recommendations noted with improving BNP and hyperkalemia resolution. Additionally, in the a.m. we will obtain iron studies for microcytic anemia noted per CBC. Obtain PT recommendations for discharge planning. Dictated by: Lady Khan NP Job#: [id number]
--- NOTE | 2017-04-12 13:04 | Progress Note ---
DATE: April 12, 2017 REASON FOR CONSULTATION: CKD stage 4. SUBJECTIVE: No acute events overnight. OBJECTIVE GENERAL: Lying comfortably in bed. VITAL SIGNS: Temperature 98.9, heart rate 72, respiratory rate 18. LUNGS: Clear to auscultation bilaterally. No wheezing or rales. HEART: Regular rate and rhythm. EXTREMITIES: No edema. LABS: Reviewed in electronic medical record. Hemoglobin of 9.5. Potassium of 3.4, sodium of 142, creatinine of 1.5 mg/dL. IMAGING: Reviewed in electronic medical record. MEDICATIONS: Reviewed in the electronic medical record. ASSESSMENT AND PLAN 1. Nonoliguric acute kidney injury on chronic kidney disease. Acute kidney injury continues to improve off of the IV fluids at this point. 2. Hypernatremia, improved, status post hypotonic fluid. 3. Hypokalemia: We will give a dose of potassium 20 mEq today. Job#: [id number] ANSHU
[2017-04-12] MEDS: POTASSIUM CHLORIDE 20 MEQ TAB CR PO NR ×2 (16:07→16:37)
[2017-04-13] VITALS (7 sets, daily range): BP systolic 130–178; BP diastolic 66–94
[2017-04-13] MEDS ORDERED: LEVOTHYROXINE SODIUM 75 MCG TAB PO SCH (06:00)
[2017-04-13] MEDS ORDERED: CEFEPIME HCL 1 GM VIAL IV SCH ×4 (06:00→13:00)
[2017-04-13 06:44] LABS: BASOPHILS % 0.4 % (0.0-1.0); EOSINOPHILS # (AUTO) 0.1 (0.0-0.4); HEMATOCRIT 33.1 % (38.2-49.6); HEMOGLOBIN 10.5 g/dL (14.0-18.0); LYMPHOCYTES # (AUTO) 1.8 (1.0-3.2); LYMPHOCYTES % 25.8 % (18.0-39.1); MEAN CORPUSCULAR HEMOGLOBIN 26.3 pg (28-32); MEAN CORPUSCULAR HGB CONC 31.7 g/dL (31-35); MONOCYTES # (AUTO) 0.5 (0.2-0.8); MONOCYTES % 7.1 % (4.4-11.3); NEUTROPHILS # (AUTO) 4.6 (2.1-6.9); NEUTROPHILS % 64.3 % (38.7-80.0); PLATELET COUNT 385 x10e3/uL (140-360); RED BLOOD COUNT 3.99 x10e6/uL (4.3-5.7); RED CELL DISTRIBUTION WIDTH 12.9 % (11.7-14.4)
--- NOTE | 2017-04-13 07:08 | Progress Note ---
DATE: April 13, 2017 TIME: 6:47 a.m. OVERNIGHT: Patient feeling better. Says he is not short of breath, and is almost ready to go home. REVIEW OF SYSTEMS: Denies any dizziness or chest pain. PHYSICAL EXAMINATION VITAL SIGNS: Reviewed. GENERAL: A tired-appearing man resting in bed. HEENT: Anicteric. He has a tracheostomy in place. CARDIOVASCULAR: Normal S1 and S2. LUNGS: He has good breath sounds. Good air movement. No extra sounds are heard. EXTREMITIES: No edema or calf tenderness. NEUROLOGICAL: Alert and oriented times 3. Moving all extremities. SKIN: Dry. PSYCHIATRIC: Normal affect. LABS: Reviewed. MEDICATIONS: Reviewed. ASSESSMENT: A 76-year-old man with: 1. Atrial fibrillation with rapid ventricular response. 2. Right lung pneumonia. 3. Hyperkalemia. 4. Acute kidney injury in the setting of chronic kidney disease, stage 3. 5. Diabetes mellitus. 6. Bilateral temporal wasting. 7. Physical deconditioning. 8. Hypothyroidism. 9. Anxiety disorder. PLAN 1. Renal function improving. He is now at or close to baseline. 2. Respiratory status has improved. The patient is not short of breath, although he does desat at nighttime, but refuses to wear oxygen stating that he feels line, and does not need oxygen if he feels fine. 3. Normocytic anemia. Has been stable over the last few days. 4. Renal ultrasound showed no hydronephrosis. 5. Continue azithromycin and cefepime. 6. Continue amiodarone. 7. His hemoglobin A1c was 5.4. 8. Discharge planning. Monitor renal function another day/stability after some improvement. Monitor respiratory status. Job#: [id number] THOMAS
[2017-04-13 07:11] LABS: ANION GAP 17.4 mmol/L (8-16); CALCIUM 8.9 mg/dL (8.4-10.2); CREATININE, SERUM 1.51 mg/dL (0.72-1.25); POTASSIUM 3.4 mmol/L (3.5-5.1)
[2017-04-13 07:30] LABS: MAGNESIUM 1.4 MG/DL (1.3-2.1); PHOSPHORUS 2.2 MG/DL (2.3-4.7)
[2017-04-13 07:33] LABS: FERRITIN 76.61 ng/mL (21.81-274.66)
[2017-04-13] MEDS: BENZONATATE 100 MG CAP PO SCH ×3 (09:00→20:37)
[2017-04-13] MEDS: PANTOPRAZOLE SOD 40 MG TABEC PO SCH (09:00)
[2017-04-13] MEDS: AZITHROMYCIN 500MG/NS 250 ML 250 ML IV SCH (09:00)
[2017-04-13] MEDS ORDERED: AMIODARONE HCL 200 MG TAB PO SCH (09:00)
[2017-04-13] MEDS: OXYBUTYNIN CHLORIDE 5 MG TAB PO SCH ×2 (09:00→17:00)
[2017-04-13] MEDS: ENOXAPARIN 30 MG/0.3 ML SYR SC SCH ×2 (09:00→20:37)
[2017-04-13] MEDS ORDERED: POTASSIUM CITRATE 10 MEQ TAB PO ONE (10:00)
--- NOTE | 2017-04-13 10:44 | Progress Note ---
DATE: April 13, 2017 REASON FOR CONSULTATION: CHELSEA on CKD. SUBJECTIVE: No acute events overnight. He states he is feeling much better. OBJECTIVE: GENERAL: Lying comfortably in bed, no acute distress. VITAL SIGNS: Temperature 97.4, heart rate 56, respiratory rate 16, blood pressure 117/68, and O2 sat of 96% on room air. HEENT: NCAT, EOMI. LUNGS: Clear to auscultation anteriorly. HEART: Regular rate and rhythm. EXTREMITIES: No edema. LABS: Reviewed on electronic medical record. Hemoglobin is 10.5, potassium of 3.4, bicarb of 20, creatinine of 1.5 mg/dL. TSAT is 15%. IMAGING: Reviewed on electronic medical record. Renal ultrasound showed normal kidney size with no hydronephrosis. MEDICATIONS: Reviewed on electronic medical record. ASSESSMENT AND PLAN 1. Nonoliguric acute kidney injury on chronic kidney disease, improved with hydration, now at baseline kidney function. 2. Hypokalemia. We will give 40 mEq p.o. KCl today. 3. Metabolic acidosis. We will start on p.o. sodium carbonate. Job#: [id number] [facility]
[2017-04-13] MEDS ORDERED: SODIUM BICARBONATE 650 MG TAB PO SCH (17:00)
[2017-04-14 01:06] VITALS: BP 171/78
[2017-04-14] MEDS ORDERED: SODIUM BICARBO650 MG PO (03:33)
[2017-04-14] MEDS ORDERED: AMIODARONE HCL200 MG PO (03:33)
[2017-04-14] MEDS ORDERED: MILK OF MA400 MG/5 M PO (03:33)
[2017-04-14] MEDS ORDERED: PROTONIX40 MG/ML PO (03:33)
[2017-04-14] MEDS ORDERED: TESSALON PERLE100 MG PO (03:33)
[2017-04-14] MEDS ORDERED: LEVAQUIN500 MG PO (03:33)
== END 2017-04-14 04:55 | disposition home or self-care (01) | DRG 193 ==
LOC: ER 10:29 → ERHOLD 15:02 → IMCU 19:59 → MED/SURG2 04-13 14:11
PROVIDERS: ADMIT Internal Medicine; ATTEND Internal Medicine
DX: J18.9 Pneumonia, unspecified organism (principal); E43 Unspecified severe protein-calorie malnutrition; E41 Nutritional marasmus; E87.0 Hyperosmolality and hypernatremia; E87.2 Acidosis; N18.4 Chronic kidney disease, stage 4 (severe); J96.10 Chronic respiratory failure, unspecified whether with hypoxia or hypercapnia; N17.9 Acute kidney failure, unspecified; I48.0 Paroxysmal atrial fibrillation; Z68.1 Body mass index [BMI] 19.9 or less, adult; R64 Cachexia; E11.21 Type 2 diabetes mellitus with diabetic nephropathy; E11.22 Type 2 diabetes mellitus with diabetic chronic kidney disease; I12.9 Hypertensive chronic kidney disease with stage 1 through stage 4 chronic kidney disease, or unspecified chronic kidney disease; Z79.4 Long term (current) use of insulin; E87.5 Hyperkalemia; Z79.01 Long term (current) use of anticoagulants; Z93.0 Tracheostomy status; E03.9 Hypothyroidism, unspecified; F41.9 Anxiety disorder, unspecified; E87.6 Hypokalemia; J44.9 Chronic obstructive pulmonary disease, unspecified
CPT/HCPCS: 36415; 71045; 76770; 80048; 80053; 81001; 82550; 82553; 82728; 82948; 83036; 83540; 83605; 83735; 83880; 84100; 84134; 84436; 84443; 84466; 84479; 84484; 85025; 85610; 85730; 87040; 87070; 87086; 87205; 87400; 87493; 93005; 93306; 97139; 99284; J0456; J0692; J1200; J1644; J1650; J7030; J7070; J7799

== ENCOUNTER 2017-12-19 13:07 | Inpatient (IN) | payer MEDICARE ==
[~2017-12-19] VITALS: Ht 175.3 cm; Wt 45.9 kg
[~2017-12-19 13:07] MED LIST changes: +AMIODARONE HCL200 MG PO; +MILK OF MA400 MG/5 M PO; +PROTONIX40 MG/ML PO; +SODIUM BICARBO650 MG PO; +TESSALON PERLE100 MG PO
[2017-12-19] MEDS ORDERED: SODIUM CHLORIDE 0.9% 1000ML 1,000 ML IV STA ×2 (14:54→16:49)
[2017-12-19 15:03] LABS: BASOPHILS % 0.3 % (0.0-1.0); EOSINOPHILS % 0.1 % (0.0-6.0); HEMATOCRIT 43.3 % (38.2-49.6); HEMOGLOBIN 13.2 g/dL (14.0-18.0); MEAN CORPUSCULAR HEMOGLOBIN 26.4 pg (28-32); MEAN CORPUSCULAR HGB CONC 30.5 g/dL (31-35); MEAN CORPUSCULAR VOLUME 86.6 fL (81-99); MONOCYTES # (AUTO) 0.8 (0.2-0.8); MONOCYTES % 5.6 % (4.4-11.3); NEUTROPHILS # (AUTO) 12.7 (2.1-6.9); NEUTROPHILS % 86.6 % (38.7-80.0); PLATELET COUNT 440 x10e3/uL (140-360); RED CELL DISTRIBUTION WIDTH 14.1 % (11.7-14.4)
[2017-12-19 15:09] LABS: INR 1.03; PROTHROMBIN TIME 14.4 seconds (11.9-14.5)
[2017-12-19 15:10] LABS: PARTIAL THROMBOPLASTIN TIME 37.6 seconds (23.8-35.5)
[2017-12-19 15:18] LABS: ALBUMIN 3.8 g/dL (3.5-5.0); ALBUMIN/GLOBULIN RATIO 0.8 (0.8-2.0); ANION GAP 26.2 mmol/L (8-16); CALCIUM 10.9 mg/dL (8.4-10.2); CREATININE, SERUM 2.26 mg/dL (0.72-1.25); POTASSIUM 4.2 mmol/L (3.5-5.1)
[2017-12-19 15:25] LABS: CREATINE KINASE MB 0.7 ng/mL (0-5.0)
--- NOTE | 2017-12-19 15:32 | Diagnostic Imaging Report ---
EXAM: XR CHEST 2 VIEWS DATE: 12/19/2017 2:47 PM INDICATION: Weakness COMPARISON: 04/09/2017 radiograph and 04/24/2016 CT soft tissue neck, no report available FINDINGS: Lines and Tubes: Tracheostomy appliance. Heart and Mediastinum: No acute cardiomediastinal findings. Lungs and Pleura: Apical emphysematous changes better demonstrated CT. There is a 19 mm irregular nodular density in the right lung base, more conspicuous. 13 mm nodular density left midlung may represent nipple shadow. Bones and Soft Tissues: No acute findings. IMPRESSION: 1. Emphysematous changes. Nodular density right lung base more conspicuous. CT chest could be obtained for further evaluation. Signed by: Dr. Alfred Tim MD on 12/19/2017 3:28 PM
[2017-12-19 16:07] LABS: CLARITY,URINE CLEAR (CLEAR); COLOR,URINE YELLOW (YELLOW); LEUKOCYTE ESTERASE ,URINE NEGATIVE (NEGATIVE)
[2017-12-19 16:08] LABS: BILIRUBIN,URINE 1+ (NEGATIVE); KETONES,URINE 1+ (NEGATIVE); NITRITE,URINE NEGATIVE (NEGATIVE); PROTEIN,URINE DIPSTICK TRACE (NEGATIVE); URINE UROBILINOGEN 0.2 mg/dL (0.2 - 1)
--- NOTE | 2017-12-19 16:15 | Diagnostic Imaging Report ---
History:Altered mental status Comparison studies: None Technique: Axial images were obtained from the skull base to the vertex. Coronal and sagittal images reconstructed from the axial data. Dose modulation, iterative reconstruction, and/or weight based adjustment of the mA/kV was utilized to reduce the radiation dose to as low as reasonably achievable. Intravenous contrast: None Findings: Scalp/skull: No abnormalities. Extra-axial spaces: No masses. No fluid collections. Brain sulci: Mildly prominent. Ventricles: Mild compensatory dilatation. No hydrocephalus. Parenchyma: No abnormal densities. No masses, hemorrhage, acute or chronic cortical vascular insults. Sellar/suprasellar region: No abnormalities. Craniocervical junction: Patent foramen magnum. No Chiari one malformation. Incidental findings: Atherosclerotic calcifications in the carotid siphons and left vertebral artery. Impression: No intracranial abnormalities Signed by: Dr. Rambo Almaguer M.D. on 12/19/2017 4:12 PM
--- NOTE | 2017-12-19 16:17 | Diagnostic Imaging Report ---
EXAM: CT Chest WITHOUT contrast INDICATION: Mental status changes, lung nodule COMPARISON: 04/09/2017 radiograph and 12/19/2017 radiograph TECHNIQUE: The Chest was scanned utilizing a multidetector helical scanner without the use of IV contrast. Coronal and sagittal reformations were obtained. IV CONTRAST: None COMPLICATIONS: None RADIATION DOSE: Total DLP: 292 mGy*cm Estimated effective dose: (DLP x 0.015 x size factor) mSv CTDIvol has been reviewed. It is below the limits set by the Radiation Protocol Committee (RPC). Appropriate CT dose reduction techniques were utilized. FINDINGS: Lines and Tubes: Tracheostomy appliance. Lower Neck: No acute findings. Heart and Great Vessels: The aorta and main pulmonary artery measure 34 and 28 mm. respectively. No pericardial effusion. Moderate aortic and coronary artery vascular calcifications. Lymph Nodes: Small mediastinal lymph nodes, not distinctly enlarged by size criteria. 10 mm right level 4 and 10 mm left level 11 largest. The hilar regions are sub-optimally evaluated given lack of IV contrast. Lungs: Biapical scarring with no pneumothorax. Moderate centrilobular emphysematous changes are present. Bronchiectasis, scarring, and volume loss present in the right middle lobe and lingula. Moderate tree-in-bud opacities, airspace opacities, septal thickening, and reticulation in the lung bases. Upper abdomen: Cyst superior left kidney. Bones and Soft Tissues: No acute. IMPRESSION: 1. Bronchiectasis, bronchial wall thickening, scarring, and volume loss right middle lobe and lingula likely sequela of prior atypical mycobacterial infection active disease not excluded. Clinical/laboratory correlation recommended. 2. Superimposed tree-in-bud opacities and bronchial wall thickening the lung bases likely represent sequela of recurrent aspiration given moderate debris in lower lobe bronchi. Sequela of mycobacterial infection possible.. 3. Borderline mediastinal lymph nodes Signed by: Dr. Alfred Tim MD on 12/19/2017 4:14 PM
[2017-12-19 16:34] LABS: BACTERIA,URINE FEW /HPF; RBC,URINE 0-5 /HPF (0-5); WBC,URINE (MAN) 0-5 /HPF (0-5)
[2017-12-19 16:35] LABS: EPITHELIAL CELLS,URINE FEW /LPF
[2017-12-19] MEDS ORDERED: DEXTROSE 50% SYRINGE 50 ML IV PRN (17:00)
[2017-12-19] MEDS ORDERED: ONDANSETRON HCL INJ 2 MG/ML VIAL IV PRN (17:00)
[2017-12-19] MEDS: HYDROCODONE/APAP 7.5MG-325MG 1 EA TAB PO PRN (17:40)
[2017-12-19] MEDS: PIPERACILLIN/TAZO 2.25 GM 50 ML IV SCH (17:50)
[2017-12-19] MEDS ORDERED: HYDROMORPHONE 2MG/ML 2 MG/ML ML IV ONE (18:30)
[2017-12-19] MEDS ORDERED: DIAZEPAM5 MG PO (18:55)
[2017-12-19] MEDS ORDERED: ASPIRIN EC81 MG PO (18:55)
[2017-12-19] MEDS ORDERED: LISINOPRIL10 MG PO (18:56)
[2017-12-19] MEDS: SODIUM CHLORIDE 0.9% 1000ML 1,000 ML IV SCH ×2 (19:15→22:52)
[2017-12-19] MEDS: INSULIN LISPRO 100 UNIT/1 ML 3ML VIAL SQ SCH (21:51)
[2017-12-19 22:30] VITALS: BP 122/58
[2017-12-20] VITALS (7 sets, daily range): BP systolic 122–180; BP diastolic 61–79
[2017-12-20] MEDS: PIPERACILLIN/TAZO 2.25 GM 50 ML IV SCH ×4 (06:00→18:00)
[2017-12-20] MEDS: SODIUM CHLORIDE 0.9% 1000ML 1,000 ML IV SCH ×3 (06:20→23:28)
[2017-12-20 07:07] LABS: BASOPHILS # (AUTO) 0.1 (0.0-0.1); BASOPHILS % 0.6 % (0.0-1.0); EOSINOPHILS # (AUTO) 0.1 (0.0-0.4); EOSINOPHILS % 1.1 % (0.0-6.0); HEMATOCRIT 38.6 % (38.2-49.6); HEMOGLOBIN 11.4 g/dL (14.0-18.0); LYMPHOCYTES # (AUTO) 1.2 (1.0-3.2); LYMPHOCYTES % 12.3 % (18.0-39.1); MEAN CORPUSCULAR HEMOGLOBIN 25.9 pg (28-32); MEAN CORPUSCULAR HGB CONC 29.5 g/dL (31-35); MEAN CORPUSCULAR VOLUME 87.7 fL (81-99); MONOCYTES # (AUTO) 0.6 (0.2-0.8); MONOCYTES % 6.3 % (4.4-11.3); NEUTROPHILS # (AUTO) 7.6 (2.1-6.9); NEUTROPHILS % 79.4 % (38.7-80.0); PLATELET COUNT 344 x10e3/uL (140-360); RED CELL DISTRIBUTION WIDTH 14.1 % (11.7-14.4)
[2017-12-20 07:28] LABS: ALBUMIN 3.1 g/dL (3.5-5.0); ALBUMIN/GLOBULIN RATIO 0.8 (0.8-2.0); ALKALINE PHOSPHATASE 60 IU/L (40-150); ANION GAP 18.5 mmol/L (8-16); BLOOD UREA NITROGEN 55 mg/dL (7-26); BUN/CREATININE RATIO 30 (6-25); CALCIUM 9.1 mg/dL (8.4-10.2); CARBON DIOXIDE 17 mmol/L (22-29); CHLORIDE 113 mmol/L (98-107); CREATININE, SERUM 1.84 mg/dL (0.72-1.25); EST GLOMERULAR FILTRATION RATE 36 ML/MIN (60-); GLUCOSE 75 mg/dL (74-118); POTASSIUM 3.5 mmol/L (3.5-5.1); SODIUM 145 mmol/L (136-145)
[2017-12-20 07:30] LABS: ALANINE AMINOTRANSFERASE < 6 IU/L (0-55)
[2017-12-20] MEDS: INSULIN LISPRO 100 UNIT/1 ML 3ML VIAL SQ SCH ×4 (07:30→20:54)
[2017-12-20 07:51] LABS: CHOL/HDL RATIO 3.5 (3.9-4.7); FREE THYROXINE INDEX 2.8929 (1.4-3.8); THYROID STIMULATING HORMONE 0.016 uIU/mL (0.350-4.940)
[2017-12-20] MEDS: ASPIRIN 81 MG ENTERIC COATED PO SCH (09:08)
[2017-12-20] MEDS: LISINOPRIL 10 MG TAB PO SCH ×2 (09:08→21:00)
[2017-12-20] MEDS ORDERED: IPRATROPIUM BROMIDE 0.02% 2.5 ML NEB NEB SCH (13:00)
[2017-12-20] MEDS: ALBUTEROL/IPRATROPIUM 3 ML NEB NEB SCH ×2 (13:00→19:33)
[2017-12-20] MEDS ORDERED: METOPROLOL TARTRATE 25 MG TAB PO SCH (13:00)
--- NOTE | 2017-12-20 18:50 | Consultation ---
DATE OF CONSULTATION: PULMONARY CONSULTATION PATIENT OF 1. Dr. Segun Nava, 2. Dr. Ezra Ramirez. 3. Dr. Chon Torres. HISTORY OF PRESENT ILLNESS: An unfortunate 77-year-old gentleman admitted with decreased appetite and weight loss. 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 Has had laryngectomy and radiation, says at [facility]. He has also had a history of bladder cancer which supposedly was too small to resect. According to records, he has a CA bladder, extending to the right ureter. He has history of paroxysmal atrial arrhythmias, atrial flutter and fib. ALLERGIES: NO KNOWN ALLERGIES. PAST MEDICAL HISTORY: History of hypothyroidism, on replacement therapy, Levoxyl; history of congestive heart failure, ejection fraction 45%. MEDICATIONS: According to record, his home medications include Levoxyl 75 mcg, oxybutynin, aspirin, Valium, and lisinopril. 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 Lives alone. FAMILY HISTORY: Noncontributory. PHYSICAL EXAMINATION GENERAL: Frail, cachectic white male, in no acute distress. Anxious. VITALS: Temperature 98.6, pulse 79, blood pressure 186/78. HEENT: Head normocephalic, atraumatic. Some temporal wasting. Tracheostomy is in place, uncuffed. LUNGS: Diminished breath sounds. HEART: Irregular rhythm. ABDOMEN: Nontender. EXTREMITIES: Nonedematous. IMPRESSION 1. History of carcinoma of the larynx. 2. Carcinoma of the bladder and ureter. 3. Atrial flutter. 4. Possible recurrent aspiration. 5. Cachexia. Request swallowing evaluation. Consider genitourinary evaluation. Therapy of congestive heart failure. Patient has been on lisinopril. Blood pressure is still high. We will add low-dose metoprolol. Consider increasing lisinopril. Thank you for this kind referral. Job#: [id number] LPA
[2017-12-20] MEDS: HEPARIN SOD (PORCINE) 5,000 UNIT/ML VIAL SC SCH (21:00)
[2017-12-21] VITALS: BP 157/70
[2017-12-21] MEDS: ALBUTEROL/IPRATROPIUM 3 ML NEB NEB SCH ×4 (01:08→21:35)
[2017-12-21 04:00] VITALS: BP 178/76
[2017-12-21] MEDS: PIPERACILLIN/TAZO 2.25 GM 50 ML IV SCH ×5 (05:26→23:46)
[2017-12-21] MEDS: INSULIN LISPRO 100 UNIT/1 ML 3ML VIAL SQ SCH ×4 (07:30→21:24)
[2017-12-21 08:35] VITALS: BP 152/72
[2017-12-21] MEDS: HYDRALAZINE HCL 20 MG/ML VIAL IV PRN ×2 (08:36→12:39)
[2017-12-21] MEDS: ASPIRIN 81 MG ENTERIC COATED PO SCH ×2 (08:41→15:15)
[2017-12-21] MEDS: LISINOPRIL 10 MG TAB PO SCH ×3 (08:42→21:23)
[2017-12-21] MEDS: HEPARIN SOD (PORCINE) 5,000 UNIT/ML VIAL SC SCH ×2 (08:43→21:24)
[2017-12-21] MEDS ORDERED: METOPROLOL TARTRATE 25 MG TAB PO SCH (09:00)
[2017-12-21 12:18] VITALS: BP 151/68
--- NOTE | 2017-12-21 14:58 | Diagnostic Imaging Report ---
EXAM: US ABDOMEN COMPLETE, US PELVIC (NON OB) BLACKMAN OR F/U DATE: 12/21/2017 12:00 AM INDICATION: Ureteral cancer COMPARISON: Renal/bladder ultrasound 04/10/2017. TECHNIQUE: Transverse and longitudinal guerrero scale and color doppler sonographic images of the upper abdomen were obtained. FINDINGS: LIVER 15.4 cm in the right midclavicular line. Normal echogenicity of the liver with normal contour, no masses. SPLEEN Measures 7.3 cm in maximum diameter. Normal echogenicity, no masses. GALLBLADDER No gallbladder distension, stone, or pericholecystic fluid. Bladder is decompressed. Negative reported sonographic Pickering's sign. BILE DUCTS No intra nor extra-hepatic biliary dilation. Common bile duct measures 0.5 cm PANCREAS: Visualized portions are normal. RIGHT KIDNEY: Measures 10.2 x 4.0 x 3.5 cm Echogenicity: Normal Collecting System: No hydronephrosis Stones: None Cyst/Mass: Multiple simple appearing right sided renal cysts, largest measuring up to 1.7 cm. No evidence of solid mass. LEFT KIDNEY: Measures 9.9 x 4.2 x 3.5 cm Echogenicity: Normal Collecting System: No hydronephrosis Stones: None Cyst/Mass: There is a left upper pole simple appearing cyst measuring up to 4.0 cm. No evidence of solid mass. BLADDER: Adjacent hyperechoic area measuring 1.6 x 0.9 cm and 1.1 x 0.9 cm with associated doppler flow. Left ureteral jet is seen. Right ureteral jet is not seen. Bladder pre-void volume is 90.4 cc. Patient was not able to void, therefore post void calculation was not obtained. PROSTATE: Likely median lobe hypertrophy. VESSELS: Aorta: Visualized portions are within normal size limits Inferior Vena Cava: Visualized portions are normal Main Portal Vein: 0.4 cm, normal size with hepatopetal flow. FREE FLUID: None IMPRESSION: Apparent hyperechoic areas in the posterior bladder wall measuring up to 1.6 cm with associated doppler flow. Findings may represent median lobe hypertrophy of the prostate, although bladder polyps can have a similar appearance. Cytoscopy may be considered for further evaluation. Hyperechoic lesions measuring up to 1.6 cm and 1.1 cm in the bladder with associated doppler flow. These may represent polyps, and cystoscopy is suggested for further evaluation. Bilateral renal cysts. Otherwise unremarkable abdominal ultrasound. Signed by: Dr. Genet Jimenez MD on 12/21/2017 2:55 PM
[2017-12-21 16:59] VITALS: BP 145/64
[2017-12-21] MEDS: SODIUM CHLORIDE 0.9% 1000ML 1,000 ML IV SCH (17:31)
[2017-12-21 20:00] VITALS: BP 197/79
[2017-12-22] VITALS (7 sets, daily range): BP systolic 113–158; BP diastolic 49–81
--- NOTE | 2017-12-22 00:57 | Consultation ---
DATE OF CONSULTATION: December 21, 2017 CARDIOLOGY CONSULT NOTE REASON FOR CONSULT: Blocked PACs and bradycardia. CHIEF COMPLAINT: Cough. HPI: Ufszvkh[age]nhl[age]-oq[age]-old man, history of carcinoma of the larynx 20 years ago, history of smoking despite his laryngeal cancer, status post laryngectomy and radiation. Also has a history of bladder cancer without any previous treatment. Also has history of paroxysmal atrial arrhythmias and atrial flutter and fibrillation per the patient. PAST MEDICAL HISTORY: 1. Hypothyroidism. 2. History of CHF with EF of 45%. 3. History of paroxysmal atrial fibrillation and flutter. 4. History of laryngeal cancer as above. 5. History of bladder cancer. MEDICATIONS: Outpatient medications reviewed. FAMILY HISTORY: No family history of early CAD. SOCIAL HISTORY: Long history of smoking, 58-pack years, recently quit. No alcohol or illicit drug use. PHYSICAL EXAMINATION: VITAL SIGNS: Temperature 96.6, pulse 67, respiratory rate 18, blood pressure 145/64, satting 99% on 5 liters nasal cannula. GENERAL: Thin man, no acute distress. CARDIOVASCULAR: Irregular. No murmurs, rubs, or gallops. Palpable carotid pulses. Palpable radial pulses. LUNGS: Diminished breath sounds bilaterally. ABDOMEN: Soft, nontender. No masses. NEURO AND PSYCH: Alert and oriented to person, place, and time. Normal affect. LABORATORY DATA: Reviewed. IMAGING DATA: Reviewed. Chest CT is notable for bronchiectasis and bronchial wall thickening, concerning for recurrent aspiration versus a mycobacterial infection. TELEMETRY DATA: Reviewed, shows frequent PACs. There is also evidence of some second-degree type 1 AV block that is intermittent. There is also some evidence of some 2:1 blocks versus blocked PACs. ASSESSMENT AND PLAN 1. History of paroxysmal atrial fibrillation. 2. Cardiomyopathy, ejection fraction 40% to 45%. 3. Premature atrial contractions. 4. 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 RECOMMENDATIONS: Agree with stopping beta blockers at this time given his AV block on telemetry. Currently, no indication for pacemaker. He is a poor candidate given ongoing infectious issues, regardless will continue to monitor. No anticoagulation given his cancer issues and risk of bleeding that goes along with that. Continue aspirin. Echocardiogram was performed earlier this year in April 2017, no reason to repeat at this time. Thank you for this consult. Will continue to follow. Job#: [id number]
[2017-12-22] MEDS: ALBUTEROL/IPRATROPIUM 3 ML NEB NEB SCH ×5 (01:45→23:35)
[2017-12-22] MEDS: PIPERACILLIN/TAZO 2.25 GM 50 ML IV SCH ×3 (05:50→18:09)
[2017-12-22] MEDS: SODIUM CHLORIDE 0.9% 1000ML 1,000 ML IV SCH ×2 (05:50→15:28)
[2017-12-22] MEDS: DIAZEPAM 5 MG TAB PO PRN (06:55)
[2017-12-22] MEDS: LISINOPRIL 10 MG TAB PO SCH ×2 (06:55→20:36)
[2017-12-22] MEDS: INSULIN LISPRO 100 UNIT/1 ML 3ML VIAL SQ SCH ×4 (07:30→20:35)
[2017-12-22] MEDS: HEPARIN SOD (PORCINE) 5,000 UNIT/ML VIAL SC SCH ×2 (08:00→20:35)
[2017-12-22] MEDS: ASPIRIN 81 MG ENTERIC COATED PO SCH (08:00)
--- NOTE | 2017-12-22 08:46 | Diagnostic Imaging Report ---
EXAM: MODIFIED BA. SWALLOW DATE: 12/21/2017 INDICATION: Aspiration pneumonia. COPD. Malnutrition. Dehydration. Hypothyroidism. COMPARISON: None TECHNIQUE: The study was performed by the speech pathology service. Numerous consistencies of barium were given by mouth. Fluoroscopy was obtained. FLUORO TIME: 2.8 minutes Radiation Dose: 70.62 cGycm2 FINDINGS: Episodes of penetration with all consistencies to the level of the vocal cords. Gross overt aspiration of thin liquids. Kavin overt aspiration of nectar thick liquids. Minimal silent aspiration of thin puree during swallow. Kavin overt aspiration of thick puree during swallow. Minimal overt aspiration of solid material during swallow. Please see speech pathology report for further details and recommendations. IMPRESSION: Episodes of aspiration and penetration. Please see speech pathology report for further details and recommendations. Signed by: Dr. Paulino Calderon M.D. on 12/22/2017 8:43 AM
--- NOTE | 2017-12-22 15:09 | Progress Note ---
DATE: December 22, 2017 CARDIOLOGY PROGRESS NOTE SUBJECTIVE: No major events. OBJECTIVE VITAL SIGNS: Temperature 97.1, pulse 79, respiratory rate 18, blood pressure 123/65, satting 98% on 5 liters. GENERAL: Chronically ill-appearing man in no acute distress. CARDIOVASCULAR: Irregular rhythm. No murmurs, rubs or gallops. Palpable carotid pulses. Palpable radial pulses. LUNGS: Coarse bilaterally. ABDOMEN: Soft, nontender. No masses. NEURO AND PSYCH: Alert and oriented to person, place and time. Normal affect. INPATIENT MEDICATIONS: Reviewed. LABORATORY DATA: Reviewed. TELEMETRY DATA: Reviewed. Still some PACs; however, no longer seeing the 2:1 AV block, and heart rate has improved. ASSESSMENT AND PLAN 1. History of paroxysmal atrial fibrillation not on anticoagulation. 2. Cardiomyopathy. Ejection fraction 40% to 45%. 3. Premature atrial contractions. 4. Bradycardia with 2nd-degree type-1 atrioventricular block as well as 2:1 atrioventricular block. RECOMMENDATIONS: His AV kurt function has improved significantly after stopping his beta reymundo. Given ongoing infection issues and overall poor condition, no further cardiovascular intervention or workup needed. Avoid beta blockers and calcium channel blockers or any other AE-ryzuk-zjosqmpw agents. Thank you for this consult. Will continue to follow. Job#: [id number]
[2017-12-22] MEDS: HYDRALAZINE HCL 20 MG/ML VIAL IV PRN (15:55)
--- NOTE | 2017-12-22 16:32 | Consultation ---
DATE OF CONSULTATION: GASTROENTEROLOGY CONSULTATION REFERRING PHYSICIAN: Dr. Mendez REASON FOR CONSULTATION: Aspiration. HISTORY OF PRESENT ILLNESS: Mr. Randle is a 77-year-old man with history of carcinoma of the larynx. He had a tracheostomy, currently with a Passy-Rocklin valve. He has bladder cancer. He has hypothyroidism, CHF, atrial fibrillation and A-flutter as well as COPD and recurrent aspiration. He has been losing weight and is cachectic. He has a history of having a feeding tube previously but not recently. He had a swallow eval and failed. He reports that sometimes food goes down the wrong way. He has cough. He denies any bleeding or abdominal pain. PAST MEDICAL HISTORY: As mentioned in HPI. MEDICATIONS AND ALLERGIES: REVIEWED, PLEASE SEE MAR, MEDICATION RECONCILIATION FORM. SOCIAL HISTORY: Ongoing tobacco. No illicit substance. FAMILY HISTORY: Reviewed and noncontributory. REVIEW OF SYSTEMS: A 10-system review is positive for that mentioned in HPI, otherwise unremarkable. PHYSICAL EXAMINATION GENERAL: He is thin, cachectic, underweight, in no acute distress. HEENT: Pupils are equal, round and reactive to light. NECK: Tracheostomy in place with a Passy-Rocklin valve. LUNGS: Decreased breath sounds bilaterally. CARDIOVASCULAR: Irregularly irregular. ABDOMEN: Soft, nontender and nondistended with normal bowel sounds. EXTREMITIES: No clubbing or edema. PSYCH: Alert. Normal mood and affect currently. NEUROLOGIC: Alert. He is oriented, although he may have superficial understanding of his medical conditions. PLAN: I had a long discussion with Mr. Randle regarding the benefits in his particular case of feeding tube placement. We also discussed the tube itself in general. At the current time, he has apparently changed his mind again and would not like a feeding tube. He says he is not interested in it. He will likely be going to hospice and would like to avoid a feeding tube at this time. He is opting to continue eating despite known risks, which are significant. Thank you very much for asking me to see Mr. Randle. I instructed him and the nursing staff to let me know if he changes his mind. Job#: [id number]
[2017-12-23] VITALS (8 sets, daily range): BP systolic 95–157; BP diastolic 53–84
[2017-12-23] MEDS: PIPERACILLIN/TAZO 2.25 GM 50 ML IV SCH ×4 (00:09→17:18)
[2017-12-23] MEDS: SODIUM CHLORIDE 0.9% 1000ML 1,000 ML IV SCH ×2 (05:11→20:46)
[2017-12-23] MEDS: ALBUTEROL/IPRATROPIUM 3 ML NEB NEB SCH ×3 (06:35→21:25)
[2017-12-23] MEDS ORDERED: ZOFRAN ODT4 MG PO (07:36)
[2017-12-23] MEDS ORDERED: CLINDAMYCIN HC150 MG PO (07:37)
[2017-12-23] MEDS: ASPIRIN 81 MG ENTERIC COATED PO SCH (08:31)
[2017-12-23] MEDS: INSULIN LISPRO 100 UNIT/1 ML 3ML VIAL SQ SCH ×4 (08:31→20:47)
[2017-12-23] MEDS: LISINOPRIL 10 MG TAB PO SCH ×2 (08:31→21:00)
[2017-12-23] MEDS: HEPARIN SOD (PORCINE) 5,000 UNIT/ML VIAL SC SCH ×2 (08:31→21:03)
[2017-12-23] MEDS: DIAZEPAM 5 MG TAB PO PRN (08:32)
[2017-12-23] MEDS: HYDROCODONE/APAP 7.5MG-325MG 1 EA TAB PO PRN (08:32)
--- NOTE | 2017-12-23 13:52 | Progress Note ---
DATE: CARDIOLOGY PROGRESS NOTE SUBJECTIVE: No major events. He is asymptomatic. Denies any chest pain or shortness of breath. OBJECTIVE VITAL SIGNS: Temperature is 96.7, heart rate is 76, respirations are 18, blood pressure is 124/74, oxygen saturation is 99% on 5 liters trach collar. GENERALLY: Patient is chronically ill-appearing. No apparent distress. CARDIOVASCULAR: Irregular rhythm, no murmurs, normal S1 and S2, 2+ pulses. LUNGS: Rhonchi bilaterally. ABDOMEN: Soft, nontender. NEUROLOGIC: No focal deficits noted. All medications were reviewed. Telemetry monitoring reviewed. IMPRESSION 1. History of paroxysmal atrial fibrillation. 2. Mild chronic systolic congestive heart failure. 3. Premature atrial complexes. 4. Bradycardia with 2nd-degree type I atrioventricular block in addition to a 2:1 atrioventricular block. RECOMMENDATIONS: There has been no high-grade AV block since stopping his AV kurt blockers. Will continue to avoid AV kurt blocking agents. Continue close telemetry monitoring. No pacemaker is indicated at this point in time. Job#: [id number] EV
[2017-12-24] VITALS (7 sets, daily range): BP systolic 119–189; BP diastolic 68–90
[2017-12-24] MEDS: PIPERACILLIN/TAZO 2.25 GM 50 ML IV SCH ×4 (00:07→17:14)
[2017-12-24] MEDS: ALBUTEROL/IPRATROPIUM 3 ML NEB NEB SCH ×4 (00:47→19:00)
[2017-12-24] MEDS: INSULIN LISPRO 100 UNIT/1 ML 3ML VIAL SQ SCH ×4 (07:30→21:00)
[2017-12-24] MEDS: DIAZEPAM 5 MG TAB PO PRN (09:00)
[2017-12-24] MEDS: HYDROCODONE/APAP 7.5MG-325MG 1 EA TAB PO PRN (09:00)
[2017-12-24] MEDS: LISINOPRIL 10 MG TAB PO SCH ×2 (09:08→21:18)
[2017-12-24] MEDS: ASPIRIN 81 MG ENTERIC COATED PO SCH (09:08)
[2017-12-24] MEDS: HEPARIN SOD (PORCINE) 5,000 UNIT/ML VIAL SC SCH ×2 (09:09→21:18)
[2017-12-24] MEDS: SODIUM CHLORIDE 0.9% 1000ML 1,000 ML IV SCH (10:09)
--- NOTE | 2017-12-24 15:36 | Progress Note ---
DATE: December 24, 2017 CARDIOLOGY PROGRESS NOTE SUBJECTIVE: No acute event. The patient feels well. Declined PEG tube placement. OBJECTIVE VITAL SIGNS: Temperature is 96.5, heart rate is 70, respirations are 18, blood pressure is 145/68, oxygen saturation is 98% on 5 liters trach collar. GENERAL: In no apparent distress, alert and oriented. CARDIOVASCULAR: Regular rate and rhythm with ectopy. LUNGS: Coarse rhonchi. ABDOMEN: Soft, nontender. EXTREMITIES: No edema. NEUROLOGIC: No focal deficits. No current laboratory data or imaging studies. Telemetry monitoring revealed normal sinus rhythm with premature atrial complexes. IMPRESSION 1. Paroxysmal atrial fibrillation. 2. Chronic systolic congestive heart failure. 3. Premature atrial complexes. 4. Bradycardia with 2nd-degree type I atrioventricular block and 2:1 atrioventricular block. RECOMMENDATIONS: The patient had no telemetry events over the last 72 hours after stopping his metoprolol. Continue to avoid all AV kurt blockers. Monitor closely on telemetry. Otherwise, continue all CV medications. He has a stable cardiovascular status. He is hemodynamically stable and no further recommendations or evaluations warranted at this time. Job#: [id number]
[2017-12-25] VITALS: BP 168/92
[2017-12-25] MEDS: ALBUTEROL/IPRATROPIUM 3 ML NEB NEB SCH ×3 (01:00→12:52)
[2017-12-25 04:00] VITALS: BP 171/84
[2017-12-25] MEDS: SODIUM CHLORIDE 0.9% 1000ML 1,000 ML IV SCH (05:02)
[2017-12-25] MEDS: PIPERACILLIN/TAZO 2.25 GM 50 ML IV SCH ×3 (05:02→12:00)
[2017-12-25] MEDS: INSULIN LISPRO 100 UNIT/1 ML 3ML VIAL SQ SCH ×2 (07:30→11:30)
[2017-12-25] MEDS: ASPIRIN 81 MG ENTERIC COATED PO SCH (08:16)
[2017-12-25] MEDS: LISINOPRIL 10 MG TAB PO SCH (08:16)
[2017-12-25] MEDS: HEPARIN SOD (PORCINE) 5,000 UNIT/ML VIAL SC SCH (08:17)
[2017-12-25 08:25] VITALS: BP 157/99
[2017-12-25 09:20] VITALS: BP 157/99
[2017-12-25 12:00] VITALS: BP 126/78
[2017-12-25 16:00] VITALS: BP 145/79
== END 2017-12-25 17:00 | disposition hospice, inpatient (51) | DRG 178 ==
LOC: ER 13:07 → ERHOLD 16:52 → MED/SURG3 23:09
PROVIDERS: ADMIT Internal Medicine; ATTEND Internal Medicine
DX: J69.0 Pneumonitis due to inhalation of food and vomit (principal); Z68.1 Body mass index [BMI] 19.9 or less, adult; I42.9 Cardiomyopathy, unspecified; I50.22 Chronic systolic (congestive) heart failure; R64 Cachexia; J44.1 Chronic obstructive pulmonary disease with (acute) exacerbation; I48.92 Unspecified atrial flutter; C67.9 Malignant neoplasm of bladder, unspecified; E03.9 Hypothyroidism, unspecified; I11.0 Hypertensive heart disease with heart failure; R63.4 Abnormal weight loss; D63.8 Anemia in other chronic diseases classified elsewhere; I49.1 Atrial premature depolarization; C67.8 Malignant neoplasm of overlapping sites of bladder; Z66 Do not resuscitate; A15.0 Tuberculosis of lung; I48.0 Paroxysmal atrial fibrillation; Z79.01 Long term (current) use of anticoagulants; R13.10 Dysphagia, unspecified
CPT/HCPCS: 36415; 70450; 71046; 71250; 74230; 76700; 76857; 80053; 80061; 81001; 82550; 82553; 82948; 83036; 83605; 83735; 84134; 84436; 84443; 84479; 84484; 85025; 85610; 85730; 87040; 87086; 87116; 87149; 87190; 87206; 93005; 94640; 96361; 97139; 99284; J0360; J1644; J2543; J7030

== ENCOUNTER 2021-01-01 15:26 | Inpatient (IN) | payer MEDICARE ==
[~2021-01-01] VITALS: Ht 175.3 cm; Wt 45.8 kg
[~2021-01-01 15:26] MED LIST changes: +ASPIRIN EC81 MG PO; +CLINDAMYCIN HC150 MG PO; +DIAZEPAM5 MG PO; +OXYBUTYNIN CHLOR5 MG PEG; -OXYBUTYNIN CHLOR5 MG PO; +ZOFRAN ODT4 MG PO
[2021-01-01] MEDS ORDERED: SODIUM CHLORIDE 0.9% 500ML 500 ML IV ONE (16:00)
[2021-01-01 16:28] LABS: BASOPHILS % 0.3 % (0.0-1.0); EOSINOPHILS # (AUTO) 0.2 (0.0-0.4); EOSINOPHILS % 1.8 % (0.0-6.0); HEMATOCRIT 40.7 % (38.2-49.6); HEMOGLOBIN 12.9 g/dL (14.0-18.0); LYMPHOCYTES # (AUTO) 0.9 (1.0-3.2); LYMPHOCYTES % 10.6 % (18.0-39.1); MEAN CORPUSCULAR HEMOGLOBIN 26.1 pg (28-32); MEAN CORPUSCULAR HGB CONC 31.7 g/dL (31-35); MEAN CORPUSCULAR VOLUME 82.4 fL (81-99); MONOCYTES # (AUTO) 0.9 (0.2-0.8); MONOCYTES % 10.5 % (4.4-11.3); NEUTROPHILS # (AUTO) 6.6 (2.1-6.9); NEUTROPHILS % 76.6 % (38.7-80.0); PLATELET COUNT 271 x10e3/uL (140-360); RED BLOOD COUNT 4.94 x10e6/uL (4.3-5.7); RED CELL DISTRIBUTION WIDTH 14.9 % (11.7-14.4)
[2021-01-01 16:36] LABS: INR 0.86; PROTHROMBIN TIME 12.4 seconds (11.9-14.5)
[2021-01-01 16:37] LABS: PARTIAL THROMBOPLASTIN TIME 31.6 seconds (23.8-35.5)
[2021-01-01 16:46] LABS: ALBUMIN 3.3 g/dL (3.5-5.0); ANION GAP 18.2 mmol/L (8-16); CALCIUM 8.8 mg/dL (8.4-10.2); CREATININE, SERUM 1.5 mg/dL (0.72-1.25); MAGNESIUM 2.5 MG/DL (1.3-2.1)
[2021-01-01 16:48] LABS: POTASSIUM 5.2 mmol/L (3.5-5.1)
[2021-01-01 16:55] LABS: B-TYPE NATRIURETIC PEPTIDE2 123.4 pg/mL (0-100)
[2021-01-01 18:12] LABS: CLARITY,URINE CLOUDY (CLEAR); COLOR,URINE RED (YELLOW); KETONES,URINE NEGATIVE (NEGATIVE); LEUKOCYTE ESTERASE ,URINE LARGE (NEGATIVE); NITRITE,URINE NEGATIVE (NEGATIVE); PROTEIN,URINE DIPSTICK >=300 (NEGATIVE); URINE UROBILINOGEN 0.2 mg/dL (0.2 - 1)
[2021-01-01 18:20] LABS: BACTERIA,URINE MODERATE /HPF; RBC,URINE >50 /HPF (0-5)
[2021-01-01] MEDS ORDERED: DEXTROSE 50% SYRINGE 50 ML IV PRN (18:45)
[2021-01-01] MEDS ORDERED: ONDANSETRON HCL INJ 2MG/ML 2ML 2 MG/ML VIAL IV PRN (18:45)
[2021-01-01] MEDS ORDERED: SODIUM CHLORIDE 0.9% 1000ML 1,000 ML IV SCH (18:45)
[2021-01-01] MEDS: CEFEPIME 1 GM in SODIUM CHLORIDE 0.9% 50ML 50 ML IV SCH ×2 (18:57→22:00)
[2021-01-01] MEDS ORDERED: GABAPENTIN300 MG PEG (20:29)
[2021-01-01] MEDS ORDERED: METOCLOPRAMIDE H5 MG PEG (20:29)
[2021-01-01 20:43] VITALS: BP 135/78
[2021-01-01] MEDS: INSULIN REGULAR, HUMAN 100 UNIT/1 ML SQ SCH (21:00)
[2021-01-01 21:21] VITALS: BP 135/78
[2021-01-02] VITALS (8 sets, daily range): BP systolic 97–121; BP diastolic 51–77
[2021-01-02] MEDS ORDERED: LIDOCAINE 4% PATCH TP PRN (00:15)
[2021-01-02] MEDS ORDERED: HYDRALAZINE HCL 20 MG/ML VIAL IV PRN (00:15)
[2021-01-02] MEDS ORDERED: ONDANSETRON HCL INJ 2MG/ML 2ML 2 MG/ML VIAL IV PRN (00:15)
[2021-01-02] MEDS ORDERED: TRAMADOL HCL 50 MG TAB PO PRN (00:15)
[2021-01-02] MEDS ORDERED: DIPHENHYDRAMINE HCL 25 MG CAP PO PRN (00:15)
[2021-01-02] MEDS ORDERED: DEXTROSE 50% SYRINGE 50 ML IV PRN (00:15)
[2021-01-02] MEDS ORDERED: MELATONIN 5 MG TABLET PO PRN (00:15)
[2021-01-02] MEDS ORDERED: DOCUSATE SODIUM 100 MG CAP PO PRN (00:15)
[2021-01-02] MEDS ORDERED: SIMETHICONE 80 MG CHEW PO PRN (00:15)
[2021-01-02] MEDS ORDERED: BENZONATATE 100 MG CAP PO PRN (00:15)
[2021-01-02] MEDS ORDERED: GLYCOPYRROLATE PEG (01:28)
[2021-01-02] MEDS ORDERED: FERROUS SULFATE PEG (01:28)
[2021-01-02] MEDS ORDERED: CYMBALTA20 MG PEG (01:28)
[2021-01-02] MEDS ORDERED: FAMOTIDINE20 MG PEG (01:28)
[2021-01-02] MEDS ORDERED: DULCOLAX SUPP10 MG RC (01:28)
[2021-01-02] MEDS ORDERED: GUAIFENESIN AC473 ML PEG (01:28)
[2021-01-02] MEDS ORDERED: VITAMIN D PEG (01:28)
[2021-01-02] MEDS ORDERED: SYNTHROID75 MCG PEG (01:28)
[2021-01-02] MEDS ORDERED: COMBIVENT RESPIM4 GM IH (01:28)
[2021-01-02] MEDS ORDERED: VALPROIC A250 MG/5 M PEG (01:28)
[2021-01-02] MEDS ORDERED: ENULOSE10 GM/15 M PEG (01:28)
[2021-01-02] MEDS ORDERED: CYMBALTA30 MG PEG (01:28)
[2021-01-02] MEDS ORDERED: TYLENOL325 MG PEG (01:34)
[2021-01-02] MEDS ORDERED: SENNA8.6 MG PEG (01:34)
[2021-01-02] MEDS ORDERED: MIRALAX17 GM PEG (01:34)
[2021-01-02] MEDS ORDERED: ULTRAM50 MG PEG (01:34)
[2021-01-02] MEDS: DEXTROSE 5%/0.9% SOD CHL 1,000 ML IV SCH ×2 (01:56→09:49)
[2021-01-02 05:07] LABS: BASOPHILS % 0.5 % (0.0-1.0); EOSINOPHILS # (AUTO) 0.1 (0.0-0.4); HEMATOCRIT 36.7 % (38.2-49.6); HEMOGLOBIN 11.2 g/dL (14.0-18.0); LYMPHOCYTES # (AUTO) 0.6 (1.0-3.2); LYMPHOCYTES % 9.6 % (18.0-39.1); MEAN CORPUSCULAR HEMOGLOBIN 26.1 pg (28-32); MEAN CORPUSCULAR HGB CONC 30.5 g/dL (31-35); MEAN CORPUSCULAR VOLUME 85.5 fL (81-99); MONOCYTES # (AUTO) 0.8 (0.2-0.8); MONOCYTES % 11.9 % (4.4-11.3); NEUTROPHILS # (AUTO) 5.1 (2.1-6.9); NEUTROPHILS % 75.7 % (38.7-80.0); PLATELET COUNT 182 x10e3/uL (140-360); RED BLOOD COUNT 4.29 x10e6/uL (4.3-5.7); RED CELL DISTRIBUTION WIDTH 14.8 % (11.7-14.4)
[2021-01-02] MEDS: CEFEPIME 1 GM in SODIUM CHLORIDE 0.9% 50ML 50 ML IV SCH ×3 (05:28→22:07)
[2021-01-02] MEDS: INSULIN REGULAR, HUMAN 100 UNIT/1 ML SQ SCH ×4 (07:30→21:00)
[2021-01-02] MEDS: PANTOPRAZOLE SOD 40 MG TABEC PO SCH (07:30)
[2021-01-02 07:31] LABS: ALBUMIN 2.4 g/dL (3.5-5.0); ALBUMIN/GLOBULIN RATIO 0.8 (0.8-2.0); ANION GAP 12.5 mmol/L (8-16); CALCIUM 7.7 mg/dL (8.4-10.2); CREATININE, SERUM 1.15 mg/dL (0.72-1.25)
[2021-01-02 07:34] LABS: POTASSIUM 3.5 mmol/L (3.5-5.1)
[2021-01-02] MEDS ORDERED: LACTULOSE SYRUP 20 GM/30 ML UDC PEG PRN (14:30)
[2021-01-02] MEDS ORDERED: NON-FORMULARY MEDICATION (Metoclopramide Hcl 5 MG) PEG SCH (15:00)
[2021-01-02] MEDS: METOCLOPRAMIDE HCL 10MG/10ML UDC PEG SCH ×2 (16:02→16:49)
[2021-01-02] MEDS: VALPROATE 250MG/5ML ORAL LIQ 5ml PEG SCH (16:02)
[2021-01-02] MEDS: GABAPENTIN 300 MG CAP PEG SCH ×2 (16:02→16:49)
[2021-01-02] MEDS: FAMOTIDINE 20 MG TAB PEG SCH (16:49)
[2021-01-02] MEDS: OXYBUTYNIN CHLORIDE 5 MG TAB PEG SCH (16:49)
[2021-01-02] MEDS ORDERED: FUROSEMIDE INJ 10 MG/ML 4 ML VIAL IV STA (19:26)
[2021-01-02] MEDS ORDERED: FUROSEMIDE INJ 100 MG in SODIUM CHLORIDE 0.9% 90 ML IV ONE (19:45)
[2021-01-02] MEDS ORDERED: ALBUTEROL/IPRATROPIUM 3 ML NEB NEB PRN (20:15)
[2021-01-02] MEDS ORDERED: METHYLPREDNISOLONE SOD SUCC 125 MG/2ML VIAL IV ONE (20:15)
[2021-01-02] MEDS ORDERED: SCOPOLAMINE 1.5 MG PATCH TOP ONE (20:30)
[2021-01-03] VITALS (8 sets, daily range): BP systolic 91–144; BP diastolic 44–83
[2021-01-03] MEDS: ALBUTEROL/IPRATROPIUM 3 ML NEB NEB SCH ×3 (04:02→12:58)
[2021-01-03] MEDS: CEFEPIME 1 GM in SODIUM CHLORIDE 0.9% 50ML 50 ML IV SCH ×3 (05:51→23:36)
[2021-01-03] MEDS: ACETAMINOPHEN 325 MG TAB PO PRN (05:51)
[2021-01-03] MEDS: LEVOTHYROXINE SODIUM 75 MCG TAB PEG SCH (05:51)
[2021-01-03] MEDS ORDERED: VALPROATE SODIUM PEG SCH (09:00)
[2021-01-03] MEDS: DULOXETINE HCL 20 MG DELAYED RELEASE PO SCH (09:26)
[2021-01-03] MEDS: METOCLOPRAMIDE HCL 10MG/10ML UDC PEG SCH ×3 (09:26→23:36)
[2021-01-03] MEDS: GABAPENTIN 300 MG CAP PEG SCH ×2 (09:26→23:36)
[2021-01-03] MEDS: FAMOTIDINE 20 MG TAB PEG SCH ×2 (09:26→16:23)
[2021-01-03] MEDS: OXYBUTYNIN CHLORIDE 5 MG TAB PEG SCH ×2 (09:26→16:23)
[2021-01-03] MEDS: VALPROATE 250MG/5ML ORAL LIQ 5ml PEG SCH (09:26)
[2021-01-03] MEDS ORDERED: METOPROLOL TARTRATE INJ 1 MG/ML VIAL IV NR (09:30)
[2021-01-03] MEDS ORDERED: SODIUM CHLORIDE 0.9% 1000ML 500 ML IV ONE (09:40)
[2021-01-03] MEDS: INSULIN REGULAR, HUMAN 100 UNIT/1 ML SQ SCH ×4 (10:18→21:00)
[2021-01-03] MEDS: PANTOPRAZOLE SOD 40 MG TABEC PO SCH (10:21)
[2021-01-03] MEDS ORDERED: METOPROLOL TARTRATE INJ 1 MG/ML VIAL IV PRN (14:00)
[2021-01-03] MEDS: METOPROLOL TARTRATE 25 MG TAB PO SCH ×2 (15:01→17:15)
[2021-01-03] MEDS ORDERED: METOPROLOL TARTRATE 25 MG TAB PO SCH (17:00)
[2021-01-03] MEDS: APIXABAN 5 MG TABLET PO SCH (17:14)
[2021-01-04] VITALS: BP 110/58
[2021-01-04] MEDS: METOPROLOL TARTRATE 25 MG TAB PO SCH ×3 (00:05→12:23)
[2021-01-04] MEDS: ACETAMINOPHEN 325 MG TAB PO PRN (00:05)
[2021-01-04 04:13] VITALS: BP 110/58
[2021-01-04 04:57] LABS: HEMATOCRIT 36.8 % (38.2-49.6); HEMOGLOBIN 11.5 g/dL (14.0-18.0)
[2021-01-04] MEDS: CEFEPIME 1 GM in SODIUM CHLORIDE 0.9% 50ML 50 ML IV SCH ×2 (05:18→13:16)
[2021-01-04] MEDS: LEVOTHYROXINE SODIUM 75 MCG TAB PEG SCH (05:18)
[2021-01-04 05:23] LABS: ANION GAP 16.6 mmol/L (8-16); CALCIUM 8.7 mg/dL (8.4-10.2); CREATININE, SERUM 1.44 mg/dL (0.72-1.25); POTASSIUM 3.6 mmol/L (3.5-5.1)
[2021-01-04] MEDS: ALBUTEROL/IPRATROPIUM 3 ML NEB NEB SCH ×2 (07:00→13:00)
[2021-01-04] MEDS: INSULIN REGULAR, HUMAN 100 UNIT/1 ML SQ SCH ×3 (07:30→16:30)
[2021-01-04 07:55] VITALS: BP 113/55
[2021-01-04 08:46] VITALS: BP 113/55
[2021-01-04] MEDS: APIXABAN 5 MG TABLET PO SCH (09:25)
[2021-01-04] MEDS: DULOXETINE HCL 20 MG DELAYED RELEASE PO SCH (09:25)
[2021-01-04] MEDS: GABAPENTIN 300 MG CAP PEG SCH (09:25)
[2021-01-04] MEDS: METOCLOPRAMIDE HCL 10MG/10ML UDC PEG SCH ×2 (09:25→15:00)
[2021-01-04] MEDS: OXYBUTYNIN CHLORIDE 5 MG TAB PEG SCH (09:25)
[2021-01-04] MEDS: VALPROATE 250MG/5ML ORAL LIQ 5ml PEG SCH (09:25)
[2021-01-04] MEDS: FAMOTIDINE 20 MG TAB PEG SCH (09:25)
[2021-01-04] MEDS ORDERED: PANTOPRAZOLE SODIUM 40 MG SUSPDR.PKT PEG SCH (11:00)
[2021-01-04 12:09] VITALS: BP 120/67
[2021-01-04 15:59] VITALS: BP 111/71
== END 2021-01-04 17:53 | DRG 683 ==
LOC: ER 16:00 → ERHOLD 18:40 → MED/SURG2 20:46
PROVIDERS: ADMIT Internal Medicine; ATTEND Internal Medicine
DX: N17.9 Acute kidney failure, unspecified (principal); Z68.1 Body mass index [BMI] 19.9 or less, adult; E44.0 Moderate protein-calorie malnutrition; E87.5 Hyperkalemia; R31.9 Hematuria, unspecified; E86.0 Dehydration; J44.9 Chronic obstructive pulmonary disease, unspecified; Z93.1 Gastrostomy status; Z85.12 Personal history of malignant neoplasm of trachea; R62.7 Adult failure to thrive; I12.9 Hypertensive chronic kidney disease with stage 1 through stage 4 chronic kidney disease, or unspecified chronic kidney disease; N18.30 Chronic kidney disease, stage 3 unspecified; Z93.0 Tracheostomy status; Z20.822 Contact with and (suspected) exposure to COVID-19; E03.9 Hypothyroidism, unspecified; I48.91 Unspecified atrial fibrillation; Z79.01 Long term (current) use of anticoagulants; E11.22 Type 2 diabetes mellitus with diabetic chronic kidney disease; Z85.51 Personal history of malignant neoplasm of bladder
CPT/HCPCS: 36415; 70450; 71045; 74176; 80048; 80053; 81001; 82140; 82270; 82550; 82553; 82948; 83605; 83735; 83880; 84443; 84484; 85014; 85018; 85025; 85610; 85730; 87040; 87086; 93005; 93306; 94640; 94799; 96361; 96372; 97139; 99251; 99285; J0692; J1817; J1940; J2930; J7030; J7040; J7042; J7050; U0002